=== PATIENT | male | born 1945 | race Caucasian/White ===

== ENCOUNTER 2017-07-01 15:23 | Emergency (ER) | payer OTHER ==
[2017-07-01] MEDS ORDERED: NS 1000 ML 1,000 ML ONE (15:34)
[2017-07-01 15:41] VITALS: BMI 35.2
[2017-07-01] MEDS ORDERED: NS 1000 ML 1,000 ML IV ONE (15:46)
[2017-07-01 16:00] LABS: ABG ALLEN TEST POS; ABG HCO3 23.8 mmol/L (22-26)
[2017-07-01 16:12] LABS: BASOPHILS % (AUTO) 0.2 % (0.2-1.0); EOSINOPHILS % (AUTO) 0.1 % (0.9-2.9); HEMATOCRIT 44.5 % (42.0-54.0); HEMOGLOBIN 14.7 g/dL (13.5-18.0); LYMPHOCYTES # (AUTO) 0.7 X10^3/uL (1.3-2.9); LYMPHOCYTES % (AUTO) 5.3 % (21.0-51.0); MEAN CORPUSCULAR HEMOGLOBIN 27.2 pg (27.0-34.0); MEAN CORPUSCULAR VOLUME 82.4 fL (80.0-100.0); MEAN PLATELET VOLUME 8.7 fL (7.4-11.0); MONOCYTES # (AUTO) 1.6 x10^3/uL (0.3-0.8); MONOCYTES % (AUTO) 11.7 % (0.0-13.0); NEUTROPHILS % (AUTO) 82.7 % (42.0-75.0); PLATELET COUNT 244 X10^3/uL (150.0-450.0); RED CELL DISTRIBUTION WIDTH 15.7 % (11.6-16.5); WHITE BLOOD COUNT 13.3 X10^3/uL (3.6-10.0)
--- NOTE | 2017-07-01 16:32 | RAD ---
HISTORY: Shortness of breath, flu-like symptoms Study: Single view chest Comparison: None Findings: Single portable view is submitted. No infiltrate, effusion or pneumothorax identified. The cardiac an d mediastinal contours are within normal limits. The soft tissues are unremarkable. IMPRESSION: 1. No acute cardiopulmonary abnormality. Reported By:
--- NOTE | 2017-07-01 16:34 | DR.GENAD ---
HPI - PCP Primary Care Physician: REGGIE - Complaint/Symptoms Chief Complaint Doctors Comments: History as stated. Chief Complaint:: PT C/O FLU LIKE SYMPTOMS. PT'S FAMILY STATES HE HAS BEEN RUNNING FEVER AND HAS BEEN COUGHING. BODY ACHES. PT'S FAMILY STATES PT HAS BEEN SICK WITH THIS FOR 1 WEEK. NOTED PT TO HAVE LABORED BREATHING. - Source History Provided: Patient - Mode of Arrival Mode of Arrival: Wheelchair - Timing Onset of Chief Complaint: 06/24/17 PMH - PMH Past Medical History: Yes Past Medical History: COPD, Coronary Artery Disease, Diabetes, Dyslipidemia, Hypertension, Sleep Apnea Past Surgical History: Yes Surgical History: Unknown - Family History History of Family Medical Conditions: No - Social History Does any household member use tobacco: No Alcohol Use: None Do you use any recreational Drugs:: No Lives With: Alone Lives Where: Home - infectious screening In the last 2 months have you had wt loss of >10#?: NO Have you had fever, night sweats or hemotysis?: No Have you traveled outside the country in the last 6 months?: No Isolation: Standard ROS - Review of Systems Constitutional: See HPI Eyes: No Symptoms Reported ENTM: No Symptoms Reported Respiratoy: No Symptoms Reported Cardiovascular: No Symptoms Reported Gastrointestinal/Abdominal: No Symptoms Reported Genitourinary: No Symptoms Reported Neurological: No Symptoms Reported Musculoskeletal: No Symptoms Reported Integumentary: No Symptoms Reported Hematologic/Lymphatic: No Symptoms Reported Endocrine: No Symptoms Reported Psychiatric: No Symptoms Reported All Other Systems: Reviewed and Negative PE - Vital Signs Vitals: Temperature 100.9 F Pulse Rate [Apical] 104 Pulse Rate 101 Respiratory Rate 31 Blood Pressure [Right Arm] 158/84 Blood Pressure 140/82 O2 Sat by Pulse Oximetry 94 - General Limitations: No Limitations General Appearance: Alert, In No Apparent Distress - Head Head Exam: Normal Inspection, Atraumatic - Eyes Eye exam: Normal Appearance, PERRL, EOMI - ENT ENT Exam: Normal Exam External Ear Exam: Normal External Inspection TM/Canal Exam: Bilateral Normal Nose Exam: Normal Nose Exam Mouth Exam: Normal Inspection Throat Exam: Normal Inspection - Neck Neck Exam: Normal Inspection, Full ROM - Chest Chest Inspection: Normal Inspection - Respiratory Respiratory Exam: Normal Lung Sounds Bilat Respiratory Exam: Bilateral Clear to Auscultation - Cardiovascular Cardiovascular Exam: Regular Rate, Normal Rhythm - Abdominal Exam Abdominal Exam: Normal Inspection, Normal Bowel Sounds Abdominal Tenderness: negative: RUQ, RLQ, LUQ, LLQ, Epigastrium, Suprapubic, Diffuse, Mild, Moderate, Severe, Other - Extremities Extremities Exam: Normal Inspection, Full ROM - Back Back Exam: Normal Inspection, Full ROM - Neurologic Neurological Exam: Alert, Oriented X3, CN II-XII Intact - Psychiatric Psychiatric Exam: Normal Affect - Skin Skin Exam: Warm, Dry, Intact ROR - Labs Reviewed Laboratory Results Reviewed?: Yes (influenza B) Result Diagrams: 07/01/17 15:50 07/01/17 15:50 Laboratory: WBC 13.3 X10^3/uL (3.6-10.0) H 07/01/17 15:50 RBC 5.40 X10^6/uL (4.7-6.0) 07/01/17 15:50 Hgb 14.7 g/dL (13.5-18.0) 07/01/17 15:50 Hct 44.5 % (42.0-54.0) 07/01/17 15:50 MCV 82.4 fL (80.0-100.0) 07/01/17 15:50 MCH 27.2 pg (27.0-34.0) 07/01/17 15:50 MCHC 33.0 g/dL (33.0-35.0) 07/01/17 15:50 RDW 15.7 % (11.6-16.5) 07/01/17 15:50 Plt Count 244 X10^3/uL (150.0-450.0) 07/01/17 15:50 MPV 8.7 fL (7.4-11.0) 07/01/17 15:50 Neut % 82.7 % (42.0-75.0) H 07/01/17 15:50 Lymph % 5.3 % (21.0-51.0) L 07/01/17 15:50 [place] % 11.7 % (0.0-13.0) 07/01/17 15:50 Eos % 0.1 % (0.9-2.9) L 07/01/17 15:50 Baso % 0.2 % (0.2-1.0) 07/01/17 15:50 Neut # 11.0 x10^3/uL (2.2-4.8) H 07/01/17 15:50 Lymph # 0.7 X10^3/uL (1.3-2.9) L 07/01/17 15:50 [place] # 1.6 x10^3/uL (0.3-0.8) H 07/01/17 15:50 Eos # 0.0 x10^3/uL (0.0-0.2) 07/01/17 15:50 Baso # 0.0 X10^3/uL (0.0-0.1) 07/01/17 15:50 Absolute Nucleated RBC 0.0 /100WBC 07/01/17 15:50 Sample Site Rrad 07/01/17 15:39 ABG pH 7.440 (7.35-7.45) 07/01/17 15:39 ABG pCO2 35.0 mmHg (35.0-45.0) 07/01/17 15:39 ABG pO2 74.0 mmHg (80.0-100.0) L 07/01/17 15:39 ABG HCO3 23.8 mmol/L (22-26) 07/01/17 15:39 ABG O2 Saturation 95.0 % (90-100) 07/01/17 15:39 ABG Base Excess 0.0 mmol/L (-2.0-2.0) 07/01/17 15:39 Stan Test Pos 07/01/17 15:39 A-a Gradient 82.0 mmHg 07/01/17 15:39 FiO2 28.000 07/01/17 15:39 Blood Gas Comments Asha well hm 07/01/17 15:39 Sodium 133 mmol/L (136-145) L 07/01/17 15:50 Corrected Sodium 137 mmol/L (136-145) 07/01/17 15:50 Potassium 4.0 mmol/L (3.5-5.1) 07/01/17 15:50 Chloride 97 mmol/L (98-107) L 07/01/17 15:50 Carbon Dioxide 22.6 mmol/L (21-32) 07/01/17 15:50 BUN 21 mg/dL (7-18) H 07/01/17 15:50 Creatinine 1.41 mg/dL (0.70-1.30) H 07/01/17 15:50 Est GFR (MDRD) Af Amer > 60 (>60) 07/01/17 15:50 Est GFR (MDRD) Non-Af 53 (>60) L 07/01/17 15:50 Glucose 247 mg/dL (65-99) H 07/01/17 15:50 Lactic Acid 2.1 mmol/L (0.4-2.0) H 07/01/17 16:00 Calcium 8.7 mg/dL (8.5-10.1) 07/01/17 15:50 Corrected Calcium 9.4 mg/dL (8.5-10.1) 07/01/17 15:50 Total Bilirubin 0.60 mg/dL (0.2-1.0) 07/01/17 15:50 AST 22 Units/L (15-37) 07/01/17 15:50 ALT 19 Units/L (12-78) 07/01/17 15:50 Alkaline Phosphatase 86 Units/L (46-116) 07/01/17 15:50 Creatine Kinase 280 Units/L (39-308) 07/01/17 15:50 CK-MB (CK-2) 1.0 ng/mL (0-4.0) 07/01/17 15:50 CK/CKMB % Calc 0.4 % (<4) 07/01/17 15:50 Troponin I 0.04 ng/mL (0-1.5) 07/01/17 15:50 Total Protein 7.7 g/dL (6.4-8.2) 07/01/17 15:50 Albumin 3.1 g/dL (3.4-5.0) L 07/01/17 15:50 Globulin 4.6 g/dL (2.5-4.5) H 07/01/17 15:50 Albumin/Globulin Ratio 0.7 Ratio (1.1-2.1) L 07/01/17 15:50 Influenza Type A (PCR) Negative (NEGATIVE) 07/01/17 18:06 Influenza Type B (PCR) Positive (NEGATIVE) A 07/01/17 18:06 - XRAY XRAY Interpreted by: Radiologist (chest: no acute cardiopulmonary disease) - Diagnosis Discharge Problem: Influenza - Discharge Plan Condition: Stable - Follow ups/Referrals Follow ups/Referrals: NFD,None [Primary Care Provider] - 3 days - Instructions
[2017-07-01] MEDS ORDERED: DUONEB 0.5 MG/3 MG ONE (16:36)
[2017-07-01 16:37] LABS: BLOOD UREA NITROGEN 21 mg/dL (7-18); CALCIUM 8.7 mg/dL (8.5-10.1); CARBON DIOXIDE 22.6 mmol/L (21-32); CHLORIDE 97 mmol/L (98-107); COR NA(FOR HYPERGLY) 137 mmol/L (136-145); CREATININE 1.41 mg/dL (0.70-1.30); SODIUM 133 mmol/L (136-145); TROPONIN I 0.04 ng/mL (0-1.5); eGFR BLACK RACES > 60 (>60); eGFR NON BLACK RACES 53 (>60)
[2017-07-01 16:40] LABS: ALANINE AMINOTRANSFERASE 19 Units/L (12-78); ALBUMIN 3.1 g/dL (3.4-5.0); ALKALINE PHOSPHATASE 86 Units/L (46-116); ASPARTATE AMINO TRANSFERASE 22 Units/L (15-37); CKMB % 0.4 % (<4); COR CA(FOR HYPOALB) 9.4 mg/dL (8.5-10.1); CREATINE KINASE 280 Units/L (39-308); TOTAL PROTEIN 7.7 g/dL (6.4-8.2)
[2017-07-01] MEDS ORDERED: SOLU-Medrol 125 MG VIAL IVP SCH (17:00)
[2017-07-01] MEDS ORDERED: SOLU-Medrol 125 MG VIAL ONE (17:08)
[2017-07-01] MEDS ORDERED: DUONEB 0.5 MG/3 MG NEB ONE (17:16)
[2017-07-01 19:01] VITALS: BP 167/67
== END 2017-07-01 19:08 | disposition home or self-care (01) ==
LOC: ER 15:34
DX: J10.1 Influenza due to other identified influenza virus with other respiratory manifestations (principal)
CPT/HCPCS: 36415; 36600; 71045; 80053; 82550; 82553; 82803; 83605; 84484; 85025; 87040; 87502; 93005; 93010; 94640; 96365; 96367; 96374; 99282; 99283; A4222; J2930; J7620

== ENCOUNTER → 2017-07-04 | Outpatient (CLI) | payer OTHER ==
[2017-07-01 19:01] VITALS: BP 167/67
[2017-07-04 14:26] LABS: BASOPHILS % (AUTO) 0.2 % (0.2-1.0); HEMATOCRIT 39.4 % (42.0-54.0); HEMOGLOBIN 13.3 g/dL (13.5-18.0); LYMPHOCYTES # (AUTO) 1.2 X10^3/uL (1.3-2.9); LYMPHOCYTES % (AUTO) 6.1 % (21.0-51.0); MEAN CORPUSCULAR HEMOGLOBIN 27.5 pg (27.0-34.0); MEAN CORPUSCULAR HGB CONC 33.7 g/dL (33.0-35.0); MEAN CORPUSCULAR VOLUME 81.8 fL (80.0-100.0); MEAN PLATELET VOLUME 8.2 fL (7.4-11.0); MONOCYTES # (AUTO) 1.6 x10^3/uL (0.3-0.8); MONOCYTES % (AUTO) 8.2 % (0.0-13.0); NEUTROPHILS # (AUTO) 16.5 x10^3/uL (2.2-4.8); NEUTROPHILS % (AUTO) 85.5 % (42.0-75.0); PLATELET COUNT 322 X10^3/uL (150.0-450.0); RED BLOOD COUNT 4.82 X10^6/uL (4.7-6.0); RED CELL DISTRIBUTION WIDTH 15.7 % (11.6-16.5); RETICULOCYTE % 0.78 % (0.8-2.2); WHITE BLOOD COUNT 19.3 X10^3/uL (3.6-10.0)
[2017-07-04 14:34] LABS: HEMOGLOBIN A1C 8.3 %
[2017-07-04 14:35] LABS: C-REACTIVE PROTEIN 223.5 mg/L (0-3.0); CALCIUM 8.7 mg/dL (8.5-10.1); CARBON DIOXIDE 25.9 mmol/L (21-32); CREATININE 1.61 mg/dL (0.70-1.30)
[2017-07-04 15:07] LABS: TOTAL PSA 15.63 ng/mL (0.13-4.0)
--- NOTE | 2017-07-04 15:17 | RAD ---
HISTORY: Shortness of breath, cough, cold, congestion Study: Two views chest Comparison: July 01, 2017 Findings: The patient is rotated. The cardiac silhouette is enlarged. An approximate 1.0 x 1.7 cm nodular opaci ty is seen projecting over the right lower lobe and was not definitely appreciated on prior exam perf ormed on July 01, 2017. This finding may reflect summation of overlying shadows or perhaps a nipp le shadow but remains indeterminate. Recommend short interval follow-up chest radiographs for further evaluation and if indicated subsequent follow-up CT of the chest. IMPRESSION: Cardiomegaly. Indeterminate nodular opacity projecting over the right lower lobe as noted above. Reported By:
[2017-07-04 15:35] LABS: ERYTHROCYTE SEDIMENTATION RATE 54 MM/HOUR (0-15)
== END | disposition home or self-care (01) | DRG 639 ==
LOC: LAB 13:50
PROVIDERS: ATTEND Psychiatry & Neurology Neurology
DX: E11.8 Type 2 diabetes mellitus with unspecified complications (principal); Z13.21 Encounter for screening for nutritional disorder; R97.20 Elevated prostate specific antigen [PSA]; I10 Essential (primary) hypertension; J10.1 Influenza due to other identified influenza virus with other respiratory manifestations; R06.02 Shortness of breath; I51.7 Cardiomegaly
CPT/HCPCS: 36415; 71046; 80048; 82306; 82607; 82615; 82746; 83036; 83880; 83918; 84153; 85025; 85045; 85652; 86140; 86256; 86340

== ENCOUNTER 2017-07-05 12:49 | Inpatient (IN) | payer OTHER ==
[2017-07-05] MEDS ORDERED: TUSSIONEX PENNKINETIC SUSP PO PRN (14:11)
[2017-07-05 14:50] LABS: BASOPHILS % (AUTO) 0.3 % (0.2-1.0); EOSINOPHILS % (AUTO) 0.2 % (0.9-2.9); HEMOGLOBIN 12.8 g/dL (13.5-18.0); LYMPHOCYTES # (AUTO) 1.1 X10^3/uL (1.3-2.9); LYMPHOCYTES % (AUTO) 6.9 % (21.0-51.0); MEAN CORPUSCULAR HEMOGLOBIN 27.4 pg (27.0-34.0); MEAN CORPUSCULAR HGB CONC 33.6 g/dL (33.0-35.0); MEAN CORPUSCULAR VOLUME 81.7 fL (80.0-100.0); MEAN PLATELET VOLUME 8.4 fL (7.4-11.0); MONOCYTES # (AUTO) 1.6 x10^3/uL (0.3-0.8); NEUTROPHILS # (AUTO) 13.5 x10^3/uL (2.2-4.8); NEUTROPHILS % (AUTO) 82.6 % (42.0-75.0); PLATELET COUNT 365 X10^3/uL (150.0-450.0); RED BLOOD COUNT 4.65 X10^6/uL (4.7-6.0); WHITE BLOOD COUNT 16.4 X10^3/uL (3.6-10.0)
[2017-07-05 14:55] VITALS: BMI 31.6
[2017-07-05] MEDS ORDERED: SALINE 3% 15 ML NEB TX NEB ONE (15:05)
[2017-07-05 15:06] LABS: ALANINE AMINOTRANSFERASE 27 Units/L (12-78); ALKALINE PHOSPHATASE 100 Units/L (46-116); ASPARTATE AMINO TRANSFERASE 22 Units/L (15-37); BLOOD UREA NITROGEN 19 mg/dL (7-18); CALCIUM 8.7 mg/dL (8.5-10.1); CARBON DIOXIDE 25.7 mmol/L (21-32); CHLORIDE 96 mmol/L (98-107); COR CA(FOR HYPOALB) 10.3 mg/dL (8.5-10.1); COR NA(FOR HYPERGLY) 136 mmol/L (136-145); CREATININE 1.33 mg/dL (0.70-1.30); SODIUM 132 mmol/L (136-145); eGFR BLACK RACES > 60 (>60); eGFR NON BLACK RACES 56 (>60)
[2017-07-05] MEDS ORDERED: NS 1/2 1000 ML IV 1,000 ML IV ONE (15:17)
[2017-07-05] MEDS: LEVAQUIN PREMIX IV 750 MG 750 MG/150 ML BAG IV SCH (15:29)
[2017-07-05] MEDS: FORTAZ or TAZICEF INJ 1 GM in NS 100 ML IV + SPIKE MINIBAG* 100 ML IV SCH ×2 (15:29→21:00)
[2017-07-05] MEDS: NS 1/2 1000 ML IV 1,000 ML IV SCH (15:29)
[2017-07-05] MEDS: ROBITUSSIN DM PO SCH ×2 (16:14→20:58)
--- NOTE | 2017-07-05 16:15 | RAD ---
Examination: Portable AP chest History: SOB Comparison 07/04/2017 Findings: Continued upper normal heart size with dilated aorta consistent with hypertension/arteriosc lerosis. The interstitial pattern in the right base is prominent but a discrete mass, nodule or conso lidation is not identified on this mobile examination. Impression: Nonspecific interstitial findings right base without definite nodule or mass. See above. Continued standard PA and lateral views recommended to better evaluate and exclude lesion suggested o n 07/04/2017. Reported By:
[2017-07-05] MEDS: HumuLIN R SC PRN ×2 (16:32→20:57)
[2017-07-05] MEDS: DUONEB 0.5 MG/3 MG NEB SCH ×2 (16:37→21:09)
[2017-07-05] MEDS: TYLENOL 325 MG TAB PO PRN (19:35)
[2017-07-05] MEDS: PULMICORT NEB TX 0.5 MG NEB SCH (21:09)
[2017-07-06] MEDS: DUONEB 0.5 MG/3 MG NEB SCH ×6 (01:13→20:42)
[2017-07-06] MEDS ORDERED: NS 1/2 1000 ML IV 1,000 ML IV ONE ×2 (03:15→20:51)
[2017-07-06] MEDS: FORTAZ or TAZICEF INJ 1 GM in NS 100 ML IV + SPIKE MINIBAG* 100 ML IV SCH ×3 (05:05→21:08)
[2017-07-06] MEDS: NS 1/2 1000 ML IV 1,000 ML IV SCH ×3 (05:05→21:08)
[2017-07-06 05:50] LABS: BASOPHILS % (AUTO) 0.3 % (0.2-1.0); EOSINOPHILS # (AUTO) 0.1 x10^3/uL (0.0-0.2); EOSINOPHILS % (AUTO) 0.6 % (0.9-2.9); HEMATOCRIT 38.9 % (42.0-54.0); LYMPHOCYTES # (AUTO) 1.2 X10^3/uL (1.3-2.9); LYMPHOCYTES % (AUTO) 8.6 % (21.0-51.0); MEAN CORPUSCULAR HEMOGLOBIN 27.2 pg (27.0-34.0); MEAN CORPUSCULAR HGB CONC 33.4 g/dL (33.0-35.0); MEAN CORPUSCULAR VOLUME 81.6 fL (80.0-100.0); MEAN PLATELET VOLUME 8.4 fL (7.4-11.0); MONOCYTES # (AUTO) 1.9 x10^3/uL (0.3-0.8); MONOCYTES % (AUTO) 13.8 % (0.0-13.0); NEUTROPHILS # (AUTO) 10.7 x10^3/uL (2.2-4.8); NEUTROPHILS % (AUTO) 76.7 % (42.0-75.0); PLATELET COUNT 369 X10^3/uL (150.0-450.0); RED BLOOD COUNT 4.77 X10^6/uL (4.7-6.0); RED CELL DISTRIBUTION WIDTH 15.8 % (11.6-16.5); WHITE BLOOD COUNT 13.9 X10^3/uL (3.6-10.0)
[2017-07-06 06:13] LABS: ALANINE AMINOTRANSFERASE 34 Units/L (12-78); ALBUMIN 1.8 g/dL (3.4-5.0); ALKALINE PHOSPHATASE 91 Units/L (46-116); ASPARTATE AMINO TRANSFERASE 27 Units/L (15-37); BLOOD UREA NITROGEN 15 mg/dL (7-18); CALCIUM 8.4 mg/dL (8.5-10.1); CARBON DIOXIDE 24.1 mmol/L (21-32); CHLORIDE 98 mmol/L (98-107); COR CA(FOR HYPOALB) 10.2 mg/dL (8.5-10.1); COR NA(FOR HYPERGLY) 136 mmol/L (136-145); CREATININE 0.97 mg/dL (0.70-1.30); SODIUM 134 mmol/L (136-145); TOTAL PROTEIN 6.7 g/dL (6.4-8.2); eGFR BLACK RACES > 60 (>60); eGFR NON BLACK RACES > 60 (>60)
--- NOTE | 2017-07-06 06:26 | RAD ---
HISTORY: 72-year-old male with shortness of breath and history of COPD and asthma. Study: Frontal view of the chest. Comparison: Chest radiograph 07/05/2017 and 07/04/2017 Findings: The trachea is midline. The cardiac silhouette is stably enlarged with low lung volumes with broncho vascular crowding at the bases. Redemonstration of right basilar nodular opacity without focal conso lidation, effusion or pneumothorax. Soft tissues are unremarkable. Osseous structures are unremarkab le. IMPRESSION: 1. Right basilar nodular opacity, recommend CT thorax for complete evaluation. Reported By:
[2017-07-06] MEDS ORDERED: POTASSIUM CHL 60 MEQ/NS 0.45% 500 ML IV PRN (07:21)
[2017-07-06] MEDS ORDERED: POTASSIUM CHL 40 MEQ/NS 0.45% 500 ML IV PRN (07:21)
[2017-07-06] MEDS ORDERED: K-RIDER 10 MEQ/NS 100 ML 10 MEQ/100 ML BAG IV PRN (07:21)
[2017-07-06] MEDS ORDERED: POTASSIUM CHLORIDE LIQ 20 MEQ UDC PO PRN (07:21)
[2017-07-06] MEDS: LEVAQUIN PREMIX IV 750 MG 750 MG/150 ML BAG IV SCH (08:11)
[2017-07-06] MEDS: PULMICORT NEB TX 0.5 MG NEB SCH ×2 (08:41→20:42)
[2017-07-06] MEDS: MAGNESIUM SULFATE 1 GM/100 mL PREMIX 1 GM/100 ML BAG IV PRN ×4 (10:00→15:00)
[2017-07-06] MEDS: ROBITUSSIN DM PO SCH ×4 (11:08→21:11)
[2017-07-06] MEDS: HumuLIN R SC PRN ×3 (11:19→21:11)
[2017-07-06] MEDS ORDERED: NS 100 ML IV 100 ML IV ONE (13:18)
[2017-07-06] MEDS: K-LYTE EFFERVESCENT PO PRN (14:05)
--- NOTE | 2017-07-06 15:37 | CT ---
HISTORY: Altered mental status. Study: CT brain with contrast Comparison: None. Technique: Multiple axial images of the brain were obtained from the skull base to the vertex with administratio n of IV contrast. Dose reduction techniques including Automated Exposure Control (AEC) and adjustmen t of mA and kV were utilized. Findings: Age-related cortical atrophy and chronic small vessel ischemic changes. No acute intraparenchymal hem orrhage or mass can be identified. No extra-axial fluid collections are seen. No alteration in the attenuation of the brain parenchyma can be identified to suggest acute or subacute ischemic change. The ventricular system is symmetric and nondilated. The extracranial structures are grossly unremark able. No areas of abnormal contrast enhancement. Atherosclerotic vascular calcifications of the visualized internal carotid and left vertebral arteries. The arteries otherwise appear normal. IMPRESSION: No acute intracranial pathology. Reported By:
--- NOTE | 2017-07-06 15:51 | CT ---
HISTORY: Shortness of breath. Study: CT chest with contrast Comparison: Chest x-ray dated same day. Technique: Multiple axial images of the chest were obtained from the thoracic inlet to the upper abdo men after the administration of IV contrast. MIP images were obtained. Dose reduction techniques incl uding Automated Exposure Control (AEC) and adjustment of mA and kV were utilized. Findings: The mediastinum does not demonstrate significant pathological lymphadenopathy. There is no paracardi al effusion observed. The thoracic aorta is normal in its contour without evidence for aneurysmal di latation. The central pulmonary arterial system does not demonstrate central filling defects to sugg est pulmonary emboli. Severe coronary artery calcifications. Mild/moderate calcifications of the thor acic aorta with associated mural thrombus. Mild cardiomegaly. Multifocal opacities are seen within the right upper lobe and right lower lobe. Small right pleural e ffusion. Other nodular densities along the right upper lobe and right lower lobe in a bronchovascular distribution. These likely represent infectious pulmonary nodules. A large pneumatocele also seen wi thin the right upper lobe. The left lung is clear. No pneumothorax. No obvious mass. 1.2 cm nonspecif ic jacobo hepatis lymph node (series 4, image 52). Question of layering sludge within the gallbladder neck. The gallbladder is otherwise unremarkable. Remaining upper abdominal structures appear normal. 2.5 x 2.6 subcutaneous posterior right upper back nodule (series 4 image 35 and series 7, image 56). This likely represents a sebaceous cyst. Degenerative changes of the spine. No obvious aggressive oss eous lesions. IMPRESSION: 1. No CT evidence of pulmonary embolus. 2. Multifocal pneumonia within the right lung as above. Recommend follow-up CT of the chest in 2-3 mo nths to document stability/resolution. 3. Other chronic findings as above. Reported By:
[2017-07-06 18:02] LABS: BILIRUBIN,URINE NEGATIVE (NEGATIVE); BLOOD/HEMOGLOBIN,URINE 1+ (NEGATIVE); GLUCOSE, URINE 1+ (NEGATIVE); KETONES,URINE NEGATIVE (NEGATIVE); LEUKOCYTE ESTERASE ,URINE NEGATIVE (NEGATIVE); NITRITES,URINE NEGATIVE (NEGATIVE); PROTEIN,URINE 2+ (NEGATIVE); UROBILINOGEN,URINE 1+ (NORMAL)
[2017-07-06 18:13] LABS: APPEARANCE,URINE CLEAR (CLEAR); BACTERIA,URINE TRACE /HPF (NEGATIVE); COLOR,URINE YELLOW (YELLOW); RBC,URINE 0-2 /HPF (NONE SEEN); SQUAMOUS EPITHELIAL CELL,UR RARE /HPF (NEGATIVE)
[2017-07-06 18:14] LABS: AMORPHOUS SEDIMENT,UR TRACE /HPF (NEGATIVE); HYALINE CASTS, URINE RARE /LPF (NEGATIVE)
--- NOTE | 2017-07-06 20:53 | DR.UPDATE ---
H&P Update History and Physical Update: WAS SEEN ON 07/05/2017. A H&P WAS COMPLETED PRIOR TO ADMISSION. PATIENT HAS BEEN SEEN AND EXAMINED WITH NO CHANGES NOTED TO H&P. Changes noted: NO Yes with the following:
[2017-07-07] MEDS: DUONEB 0.5 MG/3 MG NEB SCH ×6 (01:21→20:19)
[2017-07-07] MEDS: FORTAZ or TAZICEF INJ 1 GM in NS 100 ML IV + SPIKE MINIBAG* 100 ML IV SCH ×3 (05:30→22:03)
[2017-07-07 05:34] LABS: BASOPHILS % (AUTO) 0.3 % (0.2-1.0); EOSINOPHILS # (AUTO) 0.1 x10^3/uL (0.0-0.2); EOSINOPHILS % (AUTO) 0.9 % (0.9-2.9); HEMATOCRIT 36.8 % (42.0-54.0); HEMOGLOBIN 12.2 g/dL (13.5-18.0); LYMPHOCYTES # (AUTO) 1.2 X10^3/uL (1.3-2.9); MEAN CORPUSCULAR HEMOGLOBIN 27.2 pg (27.0-34.0); MEAN CORPUSCULAR HGB CONC 33.2 g/dL (33.0-35.0); MEAN CORPUSCULAR VOLUME 81.9 fL (80.0-100.0); MEAN PLATELET VOLUME 8.2 fL (7.4-11.0); MONOCYTES # (AUTO) 1.9 x10^3/uL (0.3-0.8); MONOCYTES % (AUTO) 12.6 % (0.0-13.0); NEUTROPHILS % (AUTO) 78.2 % (42.0-75.0); PLATELET COUNT 389 X10^3/uL (150.0-450.0); RED BLOOD COUNT 4.49 X10^6/uL (4.7-6.0); RED CELL DISTRIBUTION WIDTH 15.4 % (11.6-16.5); WHITE BLOOD COUNT 15.3 X10^3/uL (3.6-10.0)
[2017-07-07 05:54] LABS: ALANINE AMINOTRANSFERASE 51 Units/L (12-78); ALBUMIN 1.8 g/dL (3.4-5.0); ALKALINE PHOSPHATASE 91 Units/L (46-116); ASPARTATE AMINO TRANSFERASE 37 Units/L (15-37); BLOOD UREA NITROGEN 11 mg/dL (7-18); CALCIUM 8.4 mg/dL (8.5-10.1); CARBON DIOXIDE 26.7 mmol/L (21-32); CHLORIDE 100 mmol/L (98-107); COR CA(FOR HYPOALB) 10.2 mg/dL (8.5-10.1); COR NA(FOR HYPERGLY) 136 mmol/L (136-145); CREATININE 1.01 mg/dL (0.70-1.30); MAGNESIUM 1.5 mg/dL (1.7-2.9); SODIUM 135 mmol/L (136-145); TOTAL PROTEIN 6.6 g/dL (6.4-8.2); eGFR BLACK RACES > 60 (>60); eGFR NON BLACK RACES > 60 (>60)
--- NOTE | 2017-07-07 06:27 | RAD ---
HISTORY: 72-year-old male with shortness of breath and cough with congestion. History of COPD and as thma. Study: Frontal view of the chest. Comparison: Chest radiograph 07/06/2017, CT chest 07/06/2017. Findings: The trachea is midline. The cardiac silhouette is stably enlarged. Right lower lobe pneumonia consi stent with recent CT performed 07/06/2017. No large effusion or pneumothorax. Soft tissues are unrema rkable. Osseous structures are unremarkable. IMPRESSION: 1. Unchanged right lower lobe pneumonia. Reported By:
[2017-07-07] MEDS: PULMICORT NEB TX 0.5 MG NEB SCH ×2 (08:39→20:19)
[2017-07-07] MEDS: ALBUMIN HUMAN 25%- 100ML 100 ML IV SCH ×2 (09:02→11:47)
[2017-07-07] MEDS: ROBITUSSIN DM PO SCH ×4 (09:04→20:49)
[2017-07-07] MEDS: LEVAQUIN PREMIX IV 750 MG 750 MG/150 ML BAG IV SCH (09:04)
--- NOTE | 2017-07-07 09:55 | PCM.PROG ---
Progress Note - Progress Note for Day of Date: 07/06/17 - Subjective Subjective: IS BEING TREATED FOR PNEUMONIA. TODAY, HE IS ALERT AND ORIENTED, LYING IN BED ON MORNING ROUNDS. HE CONTINUES WITH COMPLAINTS OF SHORTNESS OF BREATH, A NON-PRODUCTIVE COUGH, AND WEAKNESS. FAMILY REPORTS THAT HE HAS HAD INTERMITTENT CONFUSION THROUGHOUT THE NIGHT AND YESTERDAY. ON EXAMINATION, HEART IS REGULAR IN RATE AND RHYTHM. BILATERAL LUNGS ARE NOTED WITH SCATTERED WHEEZING AND RHONCHI TO AUSCULTATION. HE IS CURRENTLY UTILIZING OXYGEN VIA NASAL CANNULA AT 2L/MIN. ABDOMEN IS ROUND, SOFT, AND NON-TENDER WITH NORMAL BOWEL SOUNDS NOTED IN ALL QUADRANTS. THERE IS NORMAL RANGE OF MOTION NOTED TO ALL EXTREMITIES. HIS VITALS THIS MORNING ARE 97.8-97-28-92% RA-144/83. LABS WERE OBTAINED. ABNORMAL LAB VALUES INCLUDE THE FOLLOWING: WBC 13.9, HGB 13.0, HCT 38.9, SODIUM 134, POTASSIUM 3.4, GLUCOSE 175, CALCIUM 8.4, MAGNESIUM 1.4, ALBUMIN 1.8. A CHEST XRAY WAS OBTAINED THIS MORNING AND REPORTED RIGHT BASILAR NODULAR OPACITY, RECOMMENDED CT THORAX FOR COMPLETE EVALUATION. CHEST CT OBTAINED AND REPORTED NO CT EVIDENCE OF PE. MULTIFOCAL PNEUMONIA WITHIN THE RIGHT LUNG. WE OBTAINED A BRAIN CT DUE TO COMPLAINTS OF INTERMITTENT CONFUSION. BRAIN CT NEGATIVE FOR ACUTE INTRACRANIAL PATHOLOGY. TODAY, WE WILL CONTINUE WITH CURRENT PLAN OF CARE WITH IV ANTIBIOTICS AND RESPIRATORY TREATMENTS. WE PLAN TO FOLLOW UP WITH AM LABS AND CHEST XRAY AND CONTINUE TO MONITOR PATIENT. - Past Medical Family Social History Past Med/Fam/Surg Hx: No changes since H&P Allergies: Allergies No Known Drug Allergies Allergy (Verified 07/01/17 15:24) - Review of Systems ROS: No change since H&P - Vital Signs and I&O's Vital Signs: Temperature 97.5 F Pulse Rate [Right Brachial] 109 Pulse Rate 102 Respiratory Rate 39 Blood Pressure [Right Arm] 150/90 Blood Pressure 167/67 O2 Sat by Pulse Oximetry 92 Intake and Output: Intake & Output 07/04/17 07/05/17 07/06/17 07/07/17 11:59 11:59 11:59 11:59 Intake Total 1317 1792 Output Total 200 Balance 1117 1792 - Physical Exam Oriented: Normal Eyes: Normal. negative: Blurred Vision, Diplopia, Discharge, Pain, Redness, Photophobia, Other Ear: Normal. negative: Right, Left, Swelling, Ecchymosis, Hemotypanum, Abrasion , Laceration Nose: Normal. negative: Injected, Discharge, Blood, Other Throat: Normal Respiratory: Generalized, Wheezes, Rhonchi Cardiovascular: Normal. negative: S3, S4, Murmur : Normal Auscultation: Bowel Sounds: Normal Palpation: Normal Tenderness: Normal Skin: Normal Musculoskeletal: Normal Psychiatric: Normal Mood Description: Calm Affect: Normal Speech Pattern: Clear, Appropriate - Laboratory and Diagnostics Result Diagrams: 07/07/17 04:35 07/07/17 04:35 Labs: 07/06/17 17:51 Urine,Clean Catch Urine Culture - Preliminary 07/05/17 14:28 Blood Blood Culture - Preliminary 07/05/17 14:36 Blood Blood Culture - Preliminary Laboratory WBC 15.3 X10^3/uL (3.6-10.0) H 07/07/17 04:35 RBC 4.49 X10^6/uL (4.7-6.0) L 07/07/17 04:35 Hgb 12.2 g/dL (13.5-18.0) L 07/07/17 04:35 Hct 36.8 % (42.0-54.0) L 07/07/17 04:35 MCV 81.9 fL (80.0-100.0) 07/07/17 04:35 MCH 27.2 pg (27.0-34.0) 07/07/17 04:35 MCHC 33.2 g/dL (33.0-35.0) 07/07/17 04:35 RDW 15.4 % (11.6-16.5) 07/07/17 04:35 Plt Count 389 X10^3/uL (150.0-450.0) 07/07/17 04:35 MPV 8.2 fL (7.4-11.0) 07/07/17 04:35 Neut % 78.2 % (42.0-75.0) H 07/07/17 04:35 Lymph % 8.0 % (21.0-51.0) L 07/07/17 04:35 [place] % 12.6 % (0.0-13.0) 07/07/17 04:35 Eos % 0.9 % (0.9-2.9) 07/07/17 04:35 Baso % 0.3 % (0.2-1.0) 07/07/17 04:35 Neut # 12.0 x10^3/uL (2.2-4.8) H 07/07/17 04:35 Lymph # 1.2 X10^3/uL (1.3-2.9) L 07/07/17 04:35 [place] # 1.9 x10^3/uL (0.3-0.8) H 07/07/17 04:35 Eos # 0.1 x10^3/uL (0.0-0.2) 07/07/17 04:35 Baso # 0.0 X10^3/uL (0.0-0.1) 07/07/17 04:35 Absolute Nucleated RBC 0.0 /100WBC 07/07/17 04:35 Sodium 135 mmol/L (136-145) L 07/07/17 04:35 Corrected Sodium 136 mmol/L (136-145) 07/07/17 04:35 Potassium 3.6 mmol/L (3.5-5.1) 07/07/17 04:35 Chloride 100 mmol/L (98-107) 07/07/17 04:35 Carbon Dioxide 26.7 mmol/L (21-32) 07/07/17 04:35 BUN 11 mg/dL (7-18) 07/07/17 04:35 Creatinine 1.01 mg/dL (0.70-1.30) 07/07/17 04:35 Est GFR (MDRD) Af Amer > 60 (>60) 07/07/17 04:35 Est GFR (MDRD) Non-Af > 60 (>60) 07/07/17 04:35 Glucose 161 mg/dL (65-99) H 07/07/17 04:35 POC Glucose (mg/dL) 159 mg/dL (65-99) H 07/07/17 05:31 Lactic Acid 2.0 mmol/L (0.4-2.0) 07/05/17 14:28 Calcium 8.4 mg/dL (8.5-10.1) L 07/07/17 04:35 Corrected Calcium 10.2 mg/dL (8.5-10.1) H 07/07/17 04:35 Magnesium 1.5 mg/dL (1.7-2.9) L 07/07/17 04:35 Total Bilirubin 0.60 mg/dL (0.2-1.0) 07/07/17 04:35 AST 37 Units/L (15-37) 07/07/17 04:35 ALT 51 Units/L (12-78) 07/07/17 04:35 Alkaline Phosphatase 91 Units/L (46-116) 07/07/17 04:35 Total Protein 6.6 g/dL (6.4-8.2) 07/07/17 04:35 Albumin 1.8 g/dL (3.4-5.0) L 07/07/17 04:35 Globulin 4.8 g/dL (2.5-4.5) H 07/07/17 04:35 Albumin/Globulin Ratio 0.4 Ratio (1.1-2.1) L 07/07/17 04:35 Specimen Type Clean catch urine 07/06/17 17:51 Urine Color Yellow (YELLOW) 07/06/17 17:51 Urine Appearance Clear (CLEAR) 07/06/17 17:51 Urine pH 6.0 (5.0 - 8.0) 07/06/17 17:51 Ur Specific [place] 1.015 (1.000-1.030) 07/06/17 17:51 Urine Protein 2+ (NEGATIVE) 07/06/17 17:51 Urine Glucose (UA) 1+ (NEGATIVE) 07/06/17 17:51 Urine Ketones Negative (NEGATIVE) 07/06/17 17:51 Urine Occult Blood 1+ (NEGATIVE) 07/06/17 17:51 Urine Nitrite Negative (NEGATIVE) 07/06/17 17:51 Urine Bilirubin Negative (NEGATIVE) 07/06/17 17:51 Urine Urobilinogen 1+ (NORMAL) 07/06/17 17:51 Ur Leukocyte Esterase Negative (NEGATIVE) 07/06/17 17:51 Urine RBC 0-2 /HPF (NONE SEEN) 07/06/17 17:51 Urine WBC 0-1 /HPF (NONE SEEN) 07/06/17 17:51 Ur Squamous Epith Cells Rare /HPF (NEGATIVE) 07/06/17 17:51 Amorphous Sediment Trace /HPF (NEGATIVE) 02/21/18 17:51 Urine Bacteria Trace /HPF (NEGATIVE) 07/06/17 17:51 Hyaline Casts Rare /LPF (NEGATIVE) 07/06/17 17:51 Ur Culture Indicated? Yes/culture set up 07/06/17 17:51 Urine Opiates Screen Negative (NEG=<300) 07/06/17 17:51 Urine Methadone Screen Negative (NEG=<300) 07/06/17 17:51 Ur Barbiturates Screen Negative (NEG=<200) 07/06/17 17:51 Ur Phencyclidine Scrn Negative (NEG=<25) 07/06/17 17:51 Ur Amphetamines Screen Negative (NEG=<1000) 07/06/17 17:51 U Benzodiazepines Scrn Negative (NEG=<200) 07/06/17 17:51 Urine Cocaine Screen Negative (NEG=<300) 07/06/17 17:51 U Marijuana (THC) Screen Negative (NEG=<50) 07/06/17 17:51 - Plan (1) Pneumonia Status: Acute Qualifiers: Pneumonia type: due to unspecified organism Laterality: right Lung location: unspecified part of lung Qualified Code(s): J18.9 - Pneumonia, unspecified organism Plan: PNEUMONIA PROTOCOL, CONTINUE TO MONITOR
[2017-07-07] MEDS ORDERED: PATIENT'S HOME MEDICATION (Albuterol Sulfate [Proventil Hfa Inhaler 6.7 Gm] 2 PUFF) INH PRN (10:14)
[2017-07-07] MEDS ORDERED: PATIENT'S HOME MEDICATION (Budesonide-Formoterol 1 PUFF) INH PRN (10:14)
[2017-07-07] MEDS ORDERED: PATIENT'S HOME MEDICATION (Tiotropium Bromide Monohydrate 1 CAP) INH SCH (10:15)
[2017-07-07] MEDS: NS 1/2 1000 ML IV 1,000 ML IV SCH (11:51)
[2017-07-07 11:58] LABS: ABG ALLEN TEST POS; ABG BASE EXCESS 4.6 mmol/L (-2.0-2.0); ABG HCO3 28.3 mmol/L (22-26)
[2017-07-07] MEDS: TAB-A-VITE PO SCH (13:07)
[2017-07-07] MEDS: ZESTRIL TAB 40 MG PO SCH (13:07)
[2017-07-07] MEDS: LOPRESSOR TAB 25 MG PO SCH ×2 (13:07→20:49)
[2017-07-07] MEDS: PROSCAR PO SCH (13:07)
[2017-07-07] MEDS: FOLIC ACID TAB 1 MG PO SCH (13:07)
[2017-07-07] MEDS: LIPITOR TAB 20 MG PO SCH (20:48)
[2017-07-07] MEDS: TYLENOL 325 MG TAB PO PRN (20:48)
[2017-07-08] MEDS: DUONEB 0.5 MG/3 MG NEB SCH ×5 (00:20→20:29)
[2017-07-08] MEDS: NS 1/2 1000 ML IV 1,000 ML IV SCH ×2 (01:55→13:46)
[2017-07-08] MEDS: FORTAZ or TAZICEF INJ 1 GM in NS 100 ML IV + SPIKE MINIBAG* 100 ML IV SCH ×3 (05:28→21:12)
[2017-07-08] MEDS ORDERED: NS 1/2 1000 ML IV 1,000 ML IV ONE (05:33)
[2017-07-08 06:14] LABS: BASOPHILS % (AUTO) 0.2 % (0.2-1.0); EOSINOPHILS # (AUTO) 0.3 x10^3/uL (0.0-0.2); EOSINOPHILS % (AUTO) 2.3 % (0.9-2.9); HEMATOCRIT 35.9 % (42.0-54.0); LYMPHOCYTES # (AUTO) 1.5 X10^3/uL (1.3-2.9); LYMPHOCYTES % (AUTO) 10.6 % (21.0-51.0); MEAN CORPUSCULAR HEMOGLOBIN 27.4 pg (27.0-34.0); MEAN CORPUSCULAR HGB CONC 33.5 g/dL (33.0-35.0); MEAN PLATELET VOLUME 8.1 fL (7.4-11.0); MONOCYTES # (AUTO) 1.9 x10^3/uL (0.3-0.8); MONOCYTES % (AUTO) 12.9 % (0.0-13.0); NEUTROPHILS # (AUTO) 10.8 x10^3/uL (2.2-4.8); PLATELET COUNT 401 X10^3/uL (150.0-450.0); RED BLOOD COUNT 4.38 X10^6/uL (4.7-6.0); RED CELL DISTRIBUTION WIDTH 15.6 % (11.6-16.5); WHITE BLOOD COUNT 14.6 X10^3/uL (3.6-10.0)
[2017-07-08 06:18] LABS: ALANINE AMINOTRANSFERASE 47 Units/L (12-78); ALBUMIN 1.9 g/dL (3.4-5.0); ALKALINE PHOSPHATASE 89 Units/L (46-116); ASPARTATE AMINO TRANSFERASE 28 Units/L (15-37); BLOOD UREA NITROGEN 8 mg/dL (7-18); CALCIUM 8.6 mg/dL (8.5-10.1); CARBON DIOXIDE 28.8 mmol/L (21-32); CHLORIDE 99 mmol/L (98-107); COR CA(FOR HYPOALB) 10.3 mg/dL (8.5-10.1); COR NA(FOR HYPERGLY) 137 mmol/L (136-145); CREATININE 0.97 mg/dL (0.70-1.30); MAGNESIUM 1.6 mg/dL (1.7-2.9); SODIUM 136 mmol/L (136-145); TOTAL PROTEIN 6.7 g/dL (6.4-8.2); eGFR BLACK RACES > 60 (>60); eGFR NON BLACK RACES > 60 (>60)
[2017-07-08 06:47] LABS: BAND NEUTROPHILS % 3 % (0-10)
[2017-07-08 06:48] LABS: PLATELET MORPHOLOGY COMMENT NORMAL (NORMAL)
--- NOTE | 2017-07-08 07:14 | RAD ---
HISTORY: Shortness of breath Study: Chest AP portable Comparison: 07/07/2017 Findings: The patient is rotated to the left. The heart is enlarged. No congestive heart failure is noted. Impr ovement is identified in the right basilar lung infiltrate being followed. The remainder of the lung cruz are clear. No definite pleural effusions are identified. The bony thorax is unremarkable. IMPRESSION: Improving right basilar lung infiltrate Cardiomegaly without congestive heart failure Reported By:
[2017-07-08] MEDS: PULMICORT NEB TX 0.5 MG NEB SCH ×2 (08:38→20:30)
--- NOTE | 2017-07-08 09:08 | PCM.PROG ---
Progress Note - Progress Note for Day of Date: 07/07/17 - Subjective Subjective: IS BEING TREATED FOR PNEUMONIA. TODAY, HE IS ALERT AND ORIENTED, SITTING UP IN BED EATING BREAKFAST. HE CONTINUES WITH COMPLAINTS OF SHORTNESS OF BREATH, A NON-PRODUCTIVE COUGH, AND WEAKNESS. FAMILY REPORTS THAT HE CONTINUES WITH INTERMITTENT CONFUSION AND WEAKNESS. ON EXAMINATION, HEART IS REGULAR IN RATE AND RHYTHM. BILATERAL LUNGS ARE NOTED WITH SCATTERED WHEEZING AND RHONCHI TO AUSCULTATION. HE IS CURRENTLY UTILIZING OXYGEN VIA NASAL CANNULA AT 2L/MIN. ABDOMEN IS ROUND, SOFT, AND NON-TENDER WITH NORMAL BOWEL SOUNDS NOTED IN ALL QUADRANTS. THERE IS NORMAL RANGE OF MOTION NOTED TO ALL EXTREMITIES. HIS VITALS THIS MORNING ARE 96.7-94-40-95%-175/86. LABS WERE OBTAINED. ABNORMAL LAB VALUES INCLUDE THE FOLLOWING: WBC 15.3, RBC 4.49, HGB 12.2, HCT 36.8, SODIUM 135, GLUCOSE 161, CALCIUM 8.4, MAGNESIUM 1.5, ALBUMIN 1.8. A CHEST XRAY WAS OBTAINED THIS MORNING AND REPORTED UNCHANGED RIGHT LOWER LOBE PNEUMONIA. TODAY, WE WILL CONTINUE WITH CURRENT PLAN OF CARE WITH IV ANTIBIOTICS AND RESPIRATORY TREATMENTS. WE WILL START ALBUMIN 25% IV DAILY AND REPLACE HIS MAGNESIUM WITH THE PROTOCOL. WE WILL ALSO RESUME HIS HOME MEDICATIONS. OTHERWISE, WE PLAN TO FOLLOW UP WITH AM LABS AND CHEST XRAY AND CONTINUE TO MONITOR PATIENT. - Past Medical Family Social History Past Med/Fam/Surg Hx: No changes since H&P Allergies: Allergies No Known Drug Allergies Allergy (Verified 07/01/17 15:24) - Review of Systems ROS: No change since H&P - Vital Signs and I&O's Vital Signs: Temperature 98.6 F Pulse Rate [Right Brachial] 88 Pulse Rate 101 Respiratory Rate 31 Blood Pressure [Right Arm] 177/83 Blood Pressure 167/67 O2 Sat by Pulse Oximetry 94 Intake and Output: Intake & Output 07/05/17 07/06/17 07/07/17 07/08/17 11:59 11:59 11:59 11:59 Intake Total 1317 1792 1625 Output Total 200 700 Balance 1117 1792 925 - Physical Exam Oriented: Normal Eyes: Normal. negative: Blurred Vision, Diplopia, Discharge, Pain, Redness, Photophobia, Other Ear: Normal. negative: Right, Left, Swelling, Ecchymosis, Hemotypanum, Abrasion , Laceration Nose: Normal. negative: Injected, Discharge, Blood, Other Throat: Normal Respiratory: Generalized, Wheezes, Rhonchi Cardiovascular: Normal. negative: S3, S4, Murmur : Normal Auscultation: Bowel Sounds: Normal Palpation: Normal Tenderness: Normal Skin: Normal Musculoskeletal: Normal Psychiatric: Normal Mood Description: Calm Affect: Normal Speech Pattern: Clear, Appropriate - Laboratory and Diagnostics Result Diagrams: 07/08/17 04:20 07/08/17 04:20 Labs: 07/06/17 17:51 Urine,Clean Catch Urine Culture - Preliminary 07/05/17 14:28 Blood Blood Culture - Preliminary 07/05/17 14:36 Blood Blood Culture - Preliminary Laboratory WBC 14.6 X10^3/uL (3.6-10.0) H 07/08/17 04:20 RBC 4.38 X10^6/uL (4.7-6.0) L 07/08/17 04:20 Hgb 12.0 g/dL (13.5-18.0) L 07/08/17 04:20 Hct 35.9 % (42.0-54.0) L 07/08/17 04:20 MCV 82.0 fL (80.0-100.0) 07/08/17 04:20 MCH 27.4 pg (27.0-34.0) 07/08/17 04:20 MCHC 33.5 g/dL (33.0-35.0) 07/08/17 04:20 RDW 15.6 % (11.6-16.5) 07/08/17 04:20 Plt Count 401 X10^3/uL (150.0-450.0) 07/08/17 04:20 Plt Count Comment Adequate (ADEQUATE) 07/08/17 04:20 MPV 8.1 fL (7.4-11.0) 07/08/17 04:20 Neut % 74.0 % (42.0-75.0) 07/08/17 04:20 Lymph % 10.6 % (21.0-51.0) L 07/08/17 04:20 [place] % 12.9 % (0.0-13.0) 07/08/17 04:20 Eos % 2.3 % (0.9-2.9) 07/08/17 04:20 Baso % 0.2 % (0.2-1.0) 07/08/17 04:20 Neut # 10.8 x10^3/uL (2.2-4.8) H 07/08/17 04:20 Lymph # 1.5 X10^3/uL (1.3-2.9) 07/08/17 04:20 [place] # 1.9 x10^3/uL (0.3-0.8) H 07/08/17 04:20 Eos # 0.3 x10^3/uL (0.0-0.2) H 07/08/17 04:20 Baso # 0.0 X10^3/uL (0.0-0.1) 07/08/17 04:20 Absolute Nucleated RBC 0.0 /100WBC 07/08/17 04:20 Total Counted 100 07/08/17 04:20 Neutrophils % (Manual) 77 % (39-76) H 07/08/17 04:20 Band Neutrophils % 3 % (0-10) 07/08/17 04:20 Lymphocytes % (Manual) 12 % (13-43) L 07/08/17 04:20 Monocytes % (Manual) 8 % (4-9) 07/08/17 04:20 Plt Morphology Comment Normal (NORMAL) 07/08/17 04:20 RBC Morphology Normal (NORMAL) 07/08/17 04:20 Sample Site Lr 07/07/17 11:41 ABG pH 7.480 (7.35-7.45) H 07/07/17 11:41 ABG pCO2 38.0 mmHg (35.0-45.0) 07/07/17 11:41 ABG pO2 77.0 mmHg (80.0-100.0) L 07/07/17 11:41 ABG HCO3 28.3 mmol/L (22-26) H 07/07/17 11:41 ABG O2 Saturation 96.0 % (90-100) 07/07/17 11:41 ABG Base Excess 4.6 mmol/L (-2.0-2.0) H 07/07/17 11:41 Stan Test Pos 07/07/17 11:41 A-a Gradient 75.0 mmHg 07/07/17 11:41 FiO2 28.000 02/22/18 11:41 Blood Gas Comments Pttolwellcd 07/07/17 11:41 Sodium 136 mmol/L (136-145) 07/08/17 04:20 Corrected Sodium 137 mmol/L (136-145) 07/08/17 04:20 Potassium 3.7 mmol/L (3.5-5.1) 07/08/17 04:20 Chloride 99 mmol/L (98-107) 07/08/17 04:20 Carbon Dioxide 28.8 mmol/L (21-32) 07/08/17 04:20 BUN 8 mg/dL (7-18) 07/08/17 04:20 Creatinine 0.97 mg/dL (0.70-1.30) 07/08/17 04:20 Est GFR (MDRD) Af Amer > 60 (>60) 07/08/17 04:20 Est GFR (MDRD) Non-Af > 60 (>60) 07/08/17 04:20 Glucose 151 mg/dL (65-99) H 07/08/17 04:20 POC Glucose (mg/dL) 157 mg/dL (65-99) H 07/08/17 05:58 Lactic Acid 2.0 mmol/L (0.4-2.0) 07/05/17 14:28 Calcium 8.6 mg/dL (8.5-10.1) 07/08/17 04:20 Corrected Calcium 10.3 mg/dL (8.5-10.1) H 07/08/17 04:20 Magnesium 1.6 mg/dL (1.7-2.9) L 07/08/17 04:20 Total Bilirubin 1.00 mg/dL (0.2-1.0) 07/08/17 04:20 AST 28 Units/L (15-37) 07/08/17 04:20 ALT 47 Units/L (12-78) 07/08/17 04:20 Alkaline Phosphatase 89 Units/L (46-116) 07/08/17 04:20 Total Protein 6.7 g/dL (6.4-8.2) 07/08/17 04:20 Albumin 1.9 g/dL (3.4-5.0) L 07/08/17 04:20 Globulin 4.8 g/dL (2.5-4.5) H 07/08/17 04:20 Albumin/Globulin Ratio 0.4 Ratio (1.1-2.1) L 07/08/17 04:20 Specimen Type Clean catch urine 07/06/17 17:51 Urine Color Yellow (YELLOW) 07/06/17 17:51 Urine Appearance Clear (CLEAR) 07/06/17 17:51 Urine pH 6.0 (5.0 - 8.0) 07/06/17 17:51 Ur Specific [place] 1.015 (1.000-1.030) 07/06/17 17:51 Urine Protein 2+ (NEGATIVE) 07/06/17 17:51 Urine Glucose (UA) 1+ (NEGATIVE) 07/06/17 17:51 Urine Ketones Negative (NEGATIVE) 07/06/17 17:51 Urine Occult Blood 1+ (NEGATIVE) 07/06/17 17:51 Urine Nitrite Negative (NEGATIVE) 07/06/17 17:51 Urine Bilirubin Negative (NEGATIVE) 07/06/17 17:51 Urine Urobilinogen 1+ (NORMAL) 07/06/17 17:51 Ur Leukocyte Esterase Negative (NEGATIVE) 07/06/17 17:51 Urine RBC 0-2 /HPF (NONE SEEN) 07/06/17 17:51 Urine WBC 0-1 /HPF (NONE SEEN) 07/06/17 17:51 Ur Squamous Epith Cells Rare /HPF (NEGATIVE) 07/06/17 17:51 Amorphous Sediment Trace /HPF (NEGATIVE) 07/06/17 17:51 Urine Bacteria Trace /HPF (NEGATIVE) 07/06/17 17:51 Hyaline Casts Rare /LPF (NEGATIVE) 07/06/17 17:51 Ur Culture Indicated? Yes/culture set up 07/06/17 17:51 Urine Opiates Screen Negative (NEG=<300) 07/06/17 17:51 Urine Methadone Screen Negative (NEG=<300) 07/06/17 17:51 Ur Barbiturates Screen Negative (NEG=<200) 07/06/17 17:51 Ur Phencyclidine Scrn Negative (NEG=<25) 07/06/17 17:51 Ur Amphetamines Screen Negative (NEG=<1000) 07/06/17 17:51 U Benzodiazepines Scrn Negative (NEG=<200) 07/06/17 17:51 Urine Cocaine Screen Negative (NEG=<300) 07/06/17 17:51 U Marijuana (THC) Screen Negative (NEG=<50) 07/06/17 17:51 - Plan (1) Pneumonia Status: Acute Qualifiers: Pneumonia type: due to unspecified organism Laterality: right Lung location: unspecified part of lung Qualified Code(s): J18.9 - Pneumonia, unspecified organism Plan: PNEUMONIA PROTOCOL, CONTINUE TO MONITOR (2) Hypomagnesemia Status: Acute Plan: magnesium protocol, continue to monitor (3) Hypoalbuminemia Status: Acute Plan: albumin 25% iv daily, continue to monitor
[2017-07-08] MEDS: MAG-OX TAB PO PRN (09:30)
[2017-07-08] MEDS: ALBUMIN HUMAN 25%- 100ML 100 ML IV SCH (10:11)
[2017-07-08] MEDS: LOPRESSOR TAB 25 MG PO SCH ×2 (10:12→20:51)
[2017-07-08] MEDS: LOVENOX INJ 40 MG SYR SC SCH (10:12)
[2017-07-08] MEDS: LEVAQUIN PREMIX IV 750 MG 750 MG/150 ML BAG IV SCH (10:12)
[2017-07-08] MEDS: FOLIC ACID TAB 1 MG PO SCH (10:12)
[2017-07-08] MEDS: ZESTRIL TAB 40 MG PO SCH (10:13)
[2017-07-08] MEDS: PROSCAR PO SCH (10:13)
[2017-07-08] MEDS: TAB-A-VITE PO SCH (10:13)
[2017-07-08] MEDS: ROBITUSSIN DM PO SCH ×4 (10:14→20:52)
[2017-07-08] MEDS: LIPITOR TAB 20 MG PO SCH (20:51)
[2017-07-08] MEDS: HumuLIN R SC PRN (21:14)
[2017-07-09] MEDS: DUONEB 0.5 MG/3 MG NEB SCH ×7 (00:55→20:00)
[2017-07-09] MEDS: FORTAZ or TAZICEF INJ 1 GM in NS 100 ML IV + SPIKE MINIBAG* 100 ML IV SCH ×3 (05:26→21:50)
[2017-07-09] MEDS: HumuLIN R SC PRN ×4 (05:31→21:48)
[2017-07-09 06:13] LABS: ALANINE AMINOTRANSFERASE 54 Units/L (12-78); ALBUMIN 2.1 g/dL (3.4-5.0); ALKALINE PHOSPHATASE 95 Units/L (46-116); ASPARTATE AMINO TRANSFERASE 35 Units/L (15-37); BLOOD UREA NITROGEN 9 mg/dL (7-18); CALCIUM 8.7 mg/dL (8.5-10.1); CARBON DIOXIDE 28.1 mmol/L (21-32); CHLORIDE 97 mmol/L (98-107); COR CA(FOR HYPOALB) 10.2 mg/dL (8.5-10.1); COR NA(FOR HYPERGLY) 135 mmol/L (136-145); CREATININE 0.95 mg/dL (0.70-1.30); SODIUM 133 mmol/L (136-145); eGFR BLACK RACES > 60 (>60); eGFR NON BLACK RACES > 60 (>60)
[2017-07-09 06:14] LABS: BASOPHILS # (AUTO) 0.1 X10^3/uL (0.0-0.1); BASOPHILS % (AUTO) 0.3 % (0.2-1.0); EOSINOPHILS # (AUTO) 0.3 x10^3/uL (0.0-0.2); EOSINOPHILS % (AUTO) 1.9 % (0.9-2.9); HEMATOCRIT 35.5 % (42.0-54.0); HEMOGLOBIN 11.9 g/dL (13.5-18.0); LYMPHOCYTES # (AUTO) 1.4 X10^3/uL (1.3-2.9); LYMPHOCYTES % (AUTO) 8.4 % (21.0-51.0); MEAN CORPUSCULAR HEMOGLOBIN 27.5 pg (27.0-34.0); MEAN CORPUSCULAR HGB CONC 33.5 g/dL (33.0-35.0); MEAN CORPUSCULAR VOLUME 82.1 fL (80.0-100.0); MEAN PLATELET VOLUME 7.9 fL (7.4-11.0); MONOCYTES # (AUTO) 1.7 x10^3/uL (0.3-0.8); MONOCYTES % (AUTO) 10.5 % (0.0-13.0); NEUTROPHILS # (AUTO) 12.9 x10^3/uL (2.2-4.8); NEUTROPHILS % (AUTO) 78.9 % (42.0-75.0); PLATELET COUNT 444 X10^3/uL (150.0-450.0); RED BLOOD COUNT 4.32 X10^6/uL (4.7-6.0); RED CELL DISTRIBUTION WIDTH 15.3 % (11.6-16.5); WHITE BLOOD COUNT 16.3 X10^3/uL (3.6-10.0)
[2017-07-09] MEDS: PULMICORT NEB TX 0.5 MG NEB SCH ×2 (08:40→19:59)
[2017-07-09] MEDS: LEVAQUIN PREMIX IV 750 MG 750 MG/150 ML BAG IV SCH (09:45)
[2017-07-09] MEDS: LOVENOX INJ 40 MG SYR SC SCH (09:45)
[2017-07-09] MEDS: ROBITUSSIN DM PO SCH ×4 (09:46→21:51)
[2017-07-09] MEDS: TAB-A-VITE PO SCH (09:46)
[2017-07-09] MEDS: ZESTRIL TAB 40 MG PO SCH (09:46)
[2017-07-09] MEDS: LOPRESSOR TAB 25 MG PO SCH ×2 (09:46→21:51)
[2017-07-09] MEDS: PROSCAR PO SCH (09:46)
[2017-07-09] MEDS: FOLIC ACID TAB 1 MG PO SCH (09:47)
[2017-07-09] MEDS: ALBUMIN HUMAN 25%- 100ML 100 ML IV SCH (09:47)
[2017-07-09] MEDS ORDERED: NS 1/2 1000 ML IV 1,000 ML IV ONE (12:19)
[2017-07-09] MEDS: NS 1/2 1000 ML IV 1,000 ML IV SCH ×2 (12:21→17:42)
[2017-07-09] MEDS: MAG-OX TAB PO PRN (12:22)
[2017-07-09] MEDS: K-LYTE EFFERVESCENT PO PRN (12:23)
[2017-07-09 18:59] LABS: ABG BASE EXCESS 7.4 mmol/L (-2.0-2.0)
[2017-07-09 19:00] LABS: ABG HCO3 31.2 mmol/L (22-26)
[2017-07-09] MEDS: LIPITOR TAB 20 MG PO SCH (21:51)
[2017-07-10] MEDS: DUONEB 0.5 MG/3 MG NEB SCH ×6 (00:11→20:57)
[2017-07-10] MEDS: FORTAZ or TAZICEF INJ 1 GM in NS 100 ML IV + SPIKE MINIBAG* 100 ML IV SCH ×3 (05:45→21:41)
[2017-07-10] MEDS: HumuLIN R SC PRN ×2 (05:51→11:47)
[2017-07-10 06:13] LABS: BASOPHILS # (AUTO) 0.1 X10^3/uL (0.0-0.1); BASOPHILS % (AUTO) 0.4 % (0.2-1.0); EOSINOPHILS # (AUTO) 0.2 x10^3/uL (0.0-0.2); EOSINOPHILS % (AUTO) 1.7 % (0.9-2.9); HEMATOCRIT 34.8 % (42.0-54.0); HEMOGLOBIN 11.8 g/dL (13.5-18.0); LYMPHOCYTES % (AUTO) 7.5 % (21.0-51.0); MEAN CORPUSCULAR HEMOGLOBIN 27.8 pg (27.0-34.0); MEAN CORPUSCULAR HGB CONC 33.8 g/dL (33.0-35.0); MEAN CORPUSCULAR VOLUME 82.1 fL (80.0-100.0); MEAN PLATELET VOLUME 7.5 fL (7.4-11.0); MONOCYTES # (AUTO) 1.4 x10^3/uL (0.3-0.8); MONOCYTES % (AUTO) 9.9 % (0.0-13.0); NEUTROPHILS # (AUTO) 11.1 x10^3/uL (2.2-4.8); NEUTROPHILS % (AUTO) 80.5 % (42.0-75.0); PLATELET COUNT 468 X10^3/uL (150.0-450.0); RED BLOOD COUNT 4.24 X10^6/uL (4.7-6.0); RED CELL DISTRIBUTION WIDTH 15.2 % (11.6-16.5); WHITE BLOOD COUNT 13.8 X10^3/uL (3.6-10.0)
[2017-07-10 06:17] LABS: ALANINE AMINOTRANSFERASE 62 Units/L (12-78); ALBUMIN 2.2 g/dL (3.4-5.0); ALKALINE PHOSPHATASE 94 Units/L (46-116); ASPARTATE AMINO TRANSFERASE 45 Units/L (15-37); BLOOD UREA NITROGEN 11 mg/dL (7-18); CALCIUM 8.8 mg/dL (8.5-10.1); CARBON DIOXIDE 26.5 mmol/L (21-32); CHLORIDE 98 mmol/L (98-107); COR CA(FOR HYPOALB) 10.2 mg/dL (8.5-10.1); COR NA(FOR HYPERGLY) 137 mmol/L (136-145); CREATININE 1.08 mg/dL (0.70-1.30); MAGNESIUM 1.7 mg/dL (1.7-2.9); SODIUM 135 mmol/L (136-145); eGFR BLACK RACES > 60 (>60); eGFR NON BLACK RACES > 60 (>60)
--- NOTE | 2017-07-10 07:15 | RAD ---
Examination: Portable AP chest History: Pneumonia Comparison 07/08/2017 Findings: Stable cardiac prominence with no change in the right lower lobe infiltrate. No new abnorma lity, pneumothorax or large pleural effusion is identified. Impression: No change. Reported By:
[2017-07-10] MEDS: ALBUMIN HUMAN 25%- 100ML 100 ML IV SCH (08:40)
[2017-07-10] MEDS: LEVAQUIN PREMIX IV 750 MG 750 MG/150 ML BAG IV SCH (08:40)
[2017-07-10] MEDS: LOPRESSOR TAB 25 MG PO SCH ×2 (08:41→21:44)
[2017-07-10] MEDS: TAB-A-VITE PO SCH (08:41)
[2017-07-10] MEDS: PULMICORT NEB TX 0.5 MG NEB SCH ×2 (08:41→20:57)
[2017-07-10] MEDS: ZESTRIL TAB 40 MG PO SCH (08:41)
[2017-07-10] MEDS: FOLIC ACID TAB 1 MG PO SCH (08:42)
[2017-07-10] MEDS: PROSCAR PO SCH (08:42)
[2017-07-10] MEDS: LOVENOX INJ 40 MG SYR SC SCH (08:49)
[2017-07-10] MEDS: ROBITUSSIN DM PO SCH ×4 (09:57→21:44)
[2017-07-10] MEDS ORDERED: NS 1/2 1000 ML IV 1,000 ML IV ONE (21:40)
[2017-07-10] MEDS: NS 1/2 1000 ML IV 1,000 ML IV SCH ×2 (21:41→21:44)
[2017-07-10] MEDS: LIPITOR TAB 20 MG PO SCH (21:44)
[2017-07-11] MEDS: DUONEB 0.5 MG/3 MG NEB SCH ×3 (00:19→08:47)
[2017-07-11] MEDS: FORTAZ or TAZICEF INJ 1 GM in NS 100 ML IV + SPIKE MINIBAG* 100 ML IV SCH (05:54)
[2017-07-11 06:08] LABS: BASOPHILS # (AUTO) 0.1 X10^3/uL (0.0-0.1); BASOPHILS % (AUTO) 0.6 % (0.2-1.0); EOSINOPHILS # (AUTO) 0.2 x10^3/uL (0.0-0.2); EOSINOPHILS % (AUTO) 1.4 % (0.9-2.9); HEMATOCRIT 35.7 % (42.0-54.0); LYMPHOCYTES # (AUTO) 0.8 X10^3/uL (1.3-2.9); LYMPHOCYTES % (AUTO) 6.9 % (21.0-51.0); MEAN CORPUSCULAR HEMOGLOBIN 27.6 pg (27.0-34.0); MEAN CORPUSCULAR HGB CONC 33.5 g/dL (33.0-35.0); MEAN CORPUSCULAR VOLUME 82.2 fL (80.0-100.0); MEAN PLATELET VOLUME 7.1 fL (7.4-11.0); MONOCYTES # (AUTO) 1.2 x10^3/uL (0.3-0.8); MONOCYTES % (AUTO) 10.5 % (0.0-13.0); NEUTROPHILS # (AUTO) 9.4 x10^3/uL (2.2-4.8); NEUTROPHILS % (AUTO) 80.6 % (42.0-75.0); PLATELET COUNT 459 X10^3/uL (150.0-450.0); RED BLOOD COUNT 4.34 X10^6/uL (4.7-6.0); RED CELL DISTRIBUTION WIDTH 15.3 % (11.6-16.5); WHITE BLOOD COUNT 11.7 X10^3/uL (3.6-10.0)
[2017-07-11 06:42] LABS: ALANINE AMINOTRANSFERASE 60 Units/L (12-78); ALBUMIN 2.3 g/dL (3.4-5.0); ALKALINE PHOSPHATASE 94 Units/L (46-116); ASPARTATE AMINO TRANSFERASE 49 Units/L (15-37); BLOOD UREA NITROGEN 16 mg/dL (7-18); CALCIUM 8.7 mg/dL (8.5-10.1); CARBON DIOXIDE 25.2 mmol/L (21-32); CHLORIDE 98 mmol/L (98-107); COR CA(FOR HYPOALB) 10.1 mg/dL (8.5-10.1); COR NA(FOR HYPERGLY) 134 mmol/L (136-145); CREATININE 1.11 mg/dL (0.70-1.30); SODIUM 133 mmol/L (136-145); eGFR BLACK RACES > 60 (>60); eGFR NON BLACK RACES > 60 (>60)
[2017-07-11 07:14] LABS: PSA TOTAL 11.2 ng/mL (0.0-4.0)
[2017-07-11] MEDS: NS 1/2 1000 ML IV 1,000 ML IV SCH (07:18)
[2017-07-11] MEDS: PULMICORT NEB TX 0.5 MG NEB SCH (08:47)
[2017-07-11 08:58] VITALS: BP 158/83
[2017-07-11] MEDS: ALBUMIN HUMAN 25%- 100ML 100 ML IV SCH (09:09)
[2017-07-11] MEDS: LEVAQUIN PREMIX IV 750 MG 750 MG/150 ML BAG IV SCH (09:10)
[2017-07-11] MEDS: PROSCAR PO SCH (09:11)
[2017-07-11] MEDS: TAB-A-VITE PO SCH (09:11)
[2017-07-11] MEDS: FOLIC ACID TAB 1 MG PO SCH (09:11)
[2017-07-11] MEDS: LOPRESSOR TAB 25 MG PO SCH (09:11)
[2017-07-11] MEDS: LOVENOX INJ 40 MG SYR SC SCH (09:11)
[2017-07-11] MEDS: ROBITUSSIN DM PO SCH (09:11)
[2017-07-11] MEDS: ZESTRIL TAB 40 MG PO SCH (09:19)
== END 2017-07-11 11:35 | DRG 195 ==
LOC: MED/SURG 12:49
PROVIDERS: ADMIT Internal Medicine; ATTEND Internal Medicine
DX: J18.8 Other pneumonia, unspecified organism (principal); J10.1 Influenza due to other identified influenza virus with other respiratory manifestations; D72.828 Other elevated white blood cell count; R06.02 Shortness of breath; R41.82 Altered mental status, unspecified; R26.89 Other abnormalities of gait and mobility; E83.42 Hypomagnesemia; E88.09 Other disorders of plasma-protein metabolism, not elsewhere classified
CPT/HCPCS: 36415; 36600; 70460; 71045; 71260; 80053; 80307; 81001; 82803; 83605; 83735; 84132; 84153; 84154; 85025; 87040; 87077; 87086; 87186; 94640; 94760; 99231; A4222; P9047; S0138; G0434; J0713; J1650; J1815; J1956; J7620; J7626

== ENCOUNTER 2020-12-08 13:55 | Inpatient (IN) ==
[2020-12-08 14:18] VITALS: BMI 33.0
--- NOTE | 2020-12-08 14:30 | DR.DIZZY ---
HPI Time seen Time Seen by Provider: 12/08/20 14:30 PCP Primary Care Physician: LONG RODRÍGUEZ Complaint Chief Complaint:: VISITING NURSE RIMA INTO HOME AND FOUND PT SEMICONSCIOUS AND IN SOME RESP DISTRESS. PT WAS ABLE TO SIT IN CHAIR AND WHEN CHAIR BROKE PT BECAME VERY ANXIOUS AND EXPERIENCED MORE RESP DISTRESS. 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, RIBS AND PELVIS ACCORDING TO FAMILY Past Surgical History: Yes Surgical History: Abdominal Surgery and Ortho Surgery Family History History of Family Medical Conditions: Yes Family Medical History: Hypertension Social History Do you use any recreational Drugs:: No Lives With: Alone Lives Where: [facility] Travel Risk Coronavirus risk:travel/contact w/high risk person: No Has patient experienced Coronavirus symptoms: No Infectious screening In the last 2 months have you had wt loss of >10#?: NO Have you had fever, night sweats or hemotysis?: No Have you traveled outside the country in the last 6 months?: No Isolation: Standard PE Vital Signs Vitals: Temperature 97.4 F Pulse Rate 78 Respiratory Rate 22 Blood Pressure [Left Arm] 186/93 Blood Pressure [Right Arm] 149/75 Blood Pressure 144/77 O2 Sat by Pulse Oximetry 99 ROR Labs Reviewed Result Diagrams: 12/08/20 15:16 12/08/20 15:16 Laboratory: WBC 15.7 X10^3/uL (3.6-10.0) H 12/08/20 15:16 RBC 4.65 X10^6/uL (4.7-6.0) L 12/08/20 15:16 Hgb 11.6 g/dL (13.5-18.0) L 12/08/20 15:16 Hct 35.3 % (42.0-54.0) L 12/08/20 15:16 MCV 75.9 fL (80.0-100.0) L 12/08/20 15:16 MCH 25.0 pg (27.0-34.0) L 12/08/20 15:16 MCHC 32.9 g/dL (33.0-35.0) L 12/08/20 15:16 RDW 18.3 % (11.6-16.5) H 12/08/20 15:16 Plt Count 403 X10^3/uL (150.0-450.0) 12/08/20 15:16 MPV 7.1 fL (7.4-11.0) L 12/08/20 15:16 Neut % (Auto) 89.4 % (42.0-75.0) H 12/08/20 15:16 Lymph % (Auto) 3.1 % (21.0-51.0) L 12/08/20 15:16 [place] % (Auto) 6.9 % (0.0-13.0) 12/08/20 15:16 Eos % (Auto) 0.3 % (0.9-2.9) L 12/08/20 15:16 Baso % (Auto) 0.3 % (0.2-1.0) 12/08/20 15:16 Neut # (Auto) 14.0 x10^3/uL (2.2-4.8) H 12/08/20 15:16 Lymph # (Auto) 0.5 X10^3/uL (1.3-2.9) L 12/08/20 15:16 [place] # (Auto) 1.1 x10^3/uL (0.3-0.8) H 12/08/20 15:16 Eos # (Auto) 0.0 x10^3/uL (0.0-0.2) 12/08/20 15:16 Baso # (Auto) 0.0 X10^3/uL (0.0-0.1) 12/08/20 15:16 Absolute Nucleated RBC 0.0 /100WBC 12/08/20 15:16 Sodium 138 mmol/L (136-145) 12/08/20 15:16 Corrected Sodium 142 mmol/L (136-145) 12/08/20 15:16 Potassium 4.2 mmol/L (3.5-5.1) 12/08/20 15:16 Chloride 100 mmol/L (98-107) 12/08/20 15:16 Carbon Dioxide 29.1 mmol/L (21-32) 12/08/20 15:16 BUN 19 mg/dL (7-18) H 12/08/20 15:16 Creatinine 1.63 mg/dL (0.70-1.30) H 12/08/20 15:16 Est GFR (MDRD) Af Amer 53 (>60) L 12/08/20 15:16 Est GFR (MDRD) Non-Af 44 (>60) L 12/08/20 15:16 Glucose 247 mg/dL (65-99) H 12/08/20 15:16 Lactic Acid 3.8 mmol/L (0.4-2.0) H 12/08/20 15:16 Calcium 9.3 mg/dL (8.5-10.1) 12/08/20 15:16 Corrected Calcium 10.3 mg/dL (8.5-10.1) H 12/08/20 15:16 Total Bilirubin 0.60 mg/dL (0.2-1.0) 12/08/20 15:16 AST 13 Units/L (15-37) L 12/08/20 15:16 ALT 12 Units/L (12-78) 12/08/20 15:16 Alkaline Phosphatase 148 Units/L (46-116) H 12/08/20 15:16 Creatine Kinase 59 Units/L (39-308) 12/08/20 15:16 CK-MB (CK-2) < 1.0 ng/mL (0-4.0) 12/08/20 15:16 CK/CKMB % Calc 1.7 % (<4) 12/08/20 15:16 Troponin I < 0.02 ng/mL (0-1.5) 12/08/20 15:16 Total Protein 7.7 g/dL (6.4-8.2) 12/08/20 15:16 Albumin 2.8 g/dL (3.4-5.0) L 12/08/20 15:16 Globulin 4.9 g/dL (2.5-4.5) H 12/08/20 15:16 Albumin/Globulin Ratio 0.6 Ratio (1.1-2.1) L 12/08/20 15:16 Specimen Type Catherized urine 12/08/20 19:45 Urine Color [place] (YELLOW) 12/08/20 19:45 Urine Appearance Cloudy (CLEAR) 12/08/20 19:45 Urine pH 5.0 (5.0 - 8.0) 12/08/20 19:45 Ur Specific [place] 1.025 (1.000-1.030) 12/08/20 19:45 Urine Protein 4+ (NEGATIVE) 12/08/20 19:45 Urine Glucose (UA) Negative (NEGATIVE) 12/08/20 19:45 Urine Ketones Negative (NEGATIVE) 12/08/20 19:45 Urine Occult Blood 5+ (NEGATIVE) 12/08/20 19:45 Urine Nitrite Negative (NEGATIVE) 12/08/20 19:45 Urine Bilirubin 1+ (NEGATIVE) 12/08/20 19:45 Urine Urobilinogen 1+ (NORMAL) 12/08/20 19:45 Ur Leukocyte Esterase 3+ (NEGATIVE) 12/08/20 19:45 Urine RBC 10-20 /HPF (0-3) A 12/08/20 19:45 Urine WBC Tntc /HPF (0-5) A 12/08/20 19:45 Ur Squamous Epith Cells Rare /HPF (NEGATIVE) 12/08/20 19:45 Amorphous Sediment 2+ /HPF (NEGATIVE) 12/08/20 19:45 Urine Bacteria 3+ /HPF (NEGATIVE) 12/08/20 19:45 Ur Culture Indicated? Yes/culture set up 12/08/20 19:45 SARS-CoV-2 (PCR) Negative (NEGATIVE) 12/08/20 18:27 Influenza Type A (PCR) Negative (NEGATIVE) 12/08/20 18:27 Influenza Type B (PCR) Negative (NEGATIVE) 12/08/20 18:27 RSV (PCR) Negative (NEGATIVE) 12/08/20 18:27 Opioid Opioid Risk Tool Age ([place] box if 16-45): No History of Preadolescent Sexual Abuse: No Total: 0 Total Score Risk Category: Low Risk Copyright: Rolando JACKMAN predicting aberrant behaviors
--- NOTE | 2020-12-08 15:16 | CT ---
HISTORYAltered mental statusSTUDYCT brain without contrastCOMPARISONNone availableTECHNIQUEMultiple axial images of the brain were obtained from the skull base to the vertex [without] administration of IV contrast.Dose reduction techniques including Automated Exposure Control (AEC) and adjustment of mA and kV were utlized.FINDINGS[No acute intraparenchymal hemorrhage or mass can be identified.] [No extra-axial fluid collections are seen.] [N there is a small indeterminate hypodense area in the left mid janeth which could represent subacute infarct. This could be correlated with MRI for further assessment.] Extensive small vessel ischemic changes noted throughout the periventricular deep white matter along with moderate cortical atrophy. [The ventricular system is symmetric and nondilated.] [The extracranial structures are grossly unremarkable.]IMPRESSIONExtensive small vessel ischemic changes in the tiny low-density area in the left mid janeth which could represent a subacute infarct. This could be better evaluated with MRI further characterizationElectronically signed by: QIANA KELLER (Dec 08, 2020 15:13:47)
--- NOTE | 2020-12-08 15:19 | RAD ---
HISTORYShortness of breathSTUDYChest AP [id number] is upper limits normal in size. No congestive heart failure is noted. The aorta is mildly ectatic. The bonnie are normal. The lung cruz are clear. No pleural ef fusions are identified. Bony thorax is unremarkable.IMPRESSIONNo significant abnormality identifiedEl ectronically signed by: MACK ALEJANDRA (Dec 08, 2020 15:16:30)
[2020-12-08 15:34] LABS: BASOPHILS % (AUTO) 0.3 % (0.2-1.0); EOSINOPHILS % (AUTO) 0.3 % (0.9-2.9); HEMATOCRIT 35.3 % (42.0-54.0); HEMOGLOBIN 11.6 g/dL (13.5-18.0); LYMPHOCYTES # (AUTO) 0.5 X10^3/uL (1.3-2.9); LYMPHOCYTES % (AUTO) 3.1 % (21.0-51.0); MEAN CORPUSCULAR HGB CONC 32.9 g/dL (33.0-35.0); MEAN CORPUSCULAR VOLUME 75.9 fL (80.0-100.0); MEAN PLATELET VOLUME 7.1 fL (7.4-11.0); MONOCYTES # (AUTO) 1.1 x10^3/uL (0.3-0.8); MONOCYTES % (AUTO) 6.9 % (0.0-13.0); NEUTROPHILS % (AUTO) 89.4 % (42.0-75.0); PLATELET COUNT 403 X10^3/uL (150.0-450.0); RED BLOOD COUNT 4.65 X10^6/uL (4.7-6.0); RED CELL DISTRIBUTION WIDTH 18.3 % (11.6-16.5); WHITE BLOOD COUNT 15.7 X10^3/uL (3.6-10.0)
[2020-12-08 15:58] LABS: ALANINE AMINOTRANSFERASE 12 Units/L (12-78); ALBUMIN 2.8 g/dL (3.4-5.0); ALKALINE PHOSPHATASE 148 Units/L (46-116); ASPARTATE AMINO TRANSFERASE 13 Units/L (15-37); BLOOD UREA NITROGEN 19 mg/dL (7-18); CALCIUM 9.3 mg/dL (8.5-10.1); CARBON DIOXIDE 29.1 mmol/L (21-32); CHLORIDE 100 mmol/L (98-107); CKMB % 1.7 % (<4); COR CA(FOR HYPOALB) 10.3 mg/dL (8.5-10.1); COR NA(FOR HYPERGLY) 142 mmol/L (136-145); CREATINE KINASE 59 Units/L (39-308); CREATINE KINASE MB < 1.0 ng/mL (0-4.0); CREATININE 1.63 mg/dL (0.70-1.30); SODIUM 138 mmol/L (136-145); TOTAL PROTEIN 7.7 g/dL (6.4-8.2); TROPONIN I < 0.02 ng/mL (0-1.5); eGFR NON BLACK RACES 44 (>60)
[2020-12-08 20:03] LABS: BILIRUBIN,URINE 1+ (NEGATIVE); BLOOD/HEMOGLOBIN,URINE 5+ (NEGATIVE); GLUCOSE, URINE NEGATIVE (NEGATIVE); KETONES,URINE NEGATIVE (NEGATIVE); LEUKOCYTE ESTERASE ,URINE 3+ (NEGATIVE); NITRITES,URINE NEGATIVE (NEGATIVE); PROTEIN,URINE 4+ (NEGATIVE); UROBILINOGEN,URINE 1+ (NORMAL)
[2020-12-08 20:15] LABS: APPEARANCE,URINE CLOUDY (CLEAR); COLOR,URINE ORANGE (YELLOW); SQUAMOUS EPITHELIAL CELL,UR RARE /HPF (NEGATIVE)
[2020-12-08 20:16] LABS: AMORPHOUS SEDIMENT,UR 2+ /HPF (NEGATIVE); BACTERIA,URINE 3+ /HPF (NEGATIVE)
[2020-12-08] MEDS ORDERED: NS 1000 ML 1,000 ML IV ONE (20:46)
[2020-12-08] MEDS ORDERED: ROCEPHIN 1 GRAM IV PREMIX 1 G/50 ML IV.SOLN. IV ONE ×2 (20:46→20:52)
[2020-12-08] MEDS ORDERED: NS 1000 ML 1,000 ML ONE (20:52)
[2020-12-08] MEDS ORDERED: METHOCARBAMOL 500 MG PO SCH (23:42)
[2020-12-08] MEDS ORDERED: VENTOLIN or PROAIR HFA IN PRN (23:42)
[2020-12-08] MEDS ORDERED: PROVENTIL NEB TX 0.083% 2.5MG/ 3ML IN PRN (23:42)
[2020-12-09] MEDS: GLUCOPHAGE PO SCH ×3 (01:02→20:15)
[2020-12-09] MEDS: ARICEPT TAB 10 MG PO SCH ×3 (01:34→20:15)
[2020-12-09] MEDS: NEURONTIN TAB 600 MG PO SCH ×2 (01:34→20:14)
[2020-12-09] MEDS: LIPITOR TAB 80 MG PO SCH ×2 (01:35→20:12)
[2020-12-09] MEDS: LOPRESSOR TAB 25 MG PO SCH ×3 (01:35→20:15)
[2020-12-09] MEDS: PROSCAR PO SCH ×2 (01:35→20:12)
[2020-12-09 06:04] LABS: BASOPHILS # (AUTO) 0.1 X10^3/uL (0.0-0.1); BASOPHILS % (AUTO) 0.8 % (0.2-1.0); EOSINOPHILS # (AUTO) 0.2 x10^3/uL (0.0-0.2); EOSINOPHILS % (AUTO) 1.7 % (0.9-2.9); HEMATOCRIT 33.5 % (42.0-54.0); HEMOGLOBIN 10.8 g/dL (13.5-18.0); LYMPHOCYTES # (AUTO) 1.3 X10^3/uL (1.3-2.9); LYMPHOCYTES % (AUTO) 11.7 % (21.0-51.0); MEAN CORPUSCULAR HEMOGLOBIN 24.4 pg (27.0-34.0); MEAN CORPUSCULAR HGB CONC 32.2 g/dL (33.0-35.0); MEAN CORPUSCULAR VOLUME 75.9 fL (80.0-100.0); MEAN PLATELET VOLUME 7.3 fL (7.4-11.0); MONOCYTES # (AUTO) 1.4 x10^3/uL (0.3-0.8); MONOCYTES % (AUTO) 12.2 % (0.0-13.0); NEUTROPHILS # (AUTO) 8.5 x10^3/uL (2.2-4.8); NEUTROPHILS % (AUTO) 73.6 % (42.0-75.0); PLATELET COUNT 340 X10^3/uL (150.0-450.0); RED BLOOD COUNT 4.42 X10^6/uL (4.7-6.0); WHITE BLOOD COUNT 11.5 X10^3/uL (3.6-10.0)
[2020-12-09 06:58] LABS: ALANINE AMINOTRANSFERASE 8 Units/L (12-78); ALBUMIN 2.4 g/dL (3.4-5.0); ALKALINE PHOSPHATASE 129 Units/L (46-116); ASPARTATE AMINO TRANSFERASE 19 Units/L (15-37); BLOOD UREA NITROGEN 22 mg/dL (7-18); CALCIUM 9.1 mg/dL (8.5-10.1); CARBON DIOXIDE 27.5 mmol/L (21-32); CHLORIDE 103 mmol/L (98-107); CKMB % 1.4 % (<4); COR CA(FOR HYPOALB) 10.4 mg/dL (8.5-10.1); COR NA(FOR HYPERGLY) 140 mmol/L (136-145); CREATINE KINASE 73 Units/L (39-308); CREATINE KINASE MB < 1.0 ng/mL (0-4.0); CREATININE 1.23 mg/dL (0.70-1.30); MAGNESIUM 1.8 mg/dL (1.7-2.9); SODIUM 139 mmol/L (136-145); TOTAL PROTEIN 7.1 g/dL (6.4-8.2); TROPONIN I < 0.02 ng/mL (0-1.5); eGFR NON BLACK RACES > 60 (>60)
[2020-12-09] MEDS ORDERED: ASPIRIN 81 MG CHEWTAB ONE (07:44)
[2020-12-09] MEDS ORDERED: NORVASC TAB 5 MG ONE (07:45)
[2020-12-09] MEDS ORDERED: LOPRESSOR TAB 25 MG ONE ×2 (07:45→19:30)
[2020-12-09] MEDS ORDERED: CLARITIN ONE (07:45)
[2020-12-09] MEDS ORDERED: DUONEB 0.5 MG/3 MG (3 mL) NEB ONE (08:03)
[2020-12-09] MEDS: PULMICORT NEB TX 0.5 MG NEB SCH ×2 (08:13→21:43)
[2020-12-09] MEDS: DUONEB 0.5 MG/3 MG (3 mL) NEB PRN ×2 (08:13→21:43)
[2020-12-09] MEDS ORDERED: LOVENOX INJ 40 MG SYR SC ONE (08:47)
[2020-12-09] MEDS ORDERED: SYMBICORT INH 160/4.5 mcg IN SCH (09:00)
[2020-12-09] MEDS ORDERED: PATIENT'S HOME MEDICATION (Cholecalciferol (Vitamin D3) 50 mcg (2,000 unit) Tablet) PO SCH (09:00)
[2020-12-09] MEDS ORDERED: PULMICORT NEB TX 0.5 MG NEB SCH (09:00)
[2020-12-09] MEDS ORDERED: PATIENT'S HOME MEDICATION (Multivitamin Tablet) PO SCH (09:00)
[2020-12-09] MEDS ORDERED: PATIENT'S HOME MEDICATION (Aspirin 81 mg Tablet) PO SCH (09:00)
[2020-12-09] MEDS: VITAMIN D3 25 mcg (1,000 UNITS) PO SCH (09:12)
[2020-12-09] MEDS: NORVASC TAB 10 MG PO SCH (09:12)
[2020-12-09] MEDS: ASPIRIN EC 81 MG PO SCH (09:13)
[2020-12-09] MEDS: GLUCOTROL PO SCH (09:13)
[2020-12-09] MEDS: LOVENOX INJ 40 MG SYR SC SCH (09:13)
[2020-12-09] MEDS: TAB-A-VITE PO SCH (09:13)
[2020-12-09] MEDS: CYMBALTA PO SCH (09:14)
[2020-12-09] MEDS: CLARITIN PO SCH (09:14)
[2020-12-09] MEDS ORDERED: NS 1000 ML 1,000 ML ONE (10:31)
--- NOTE | 2020-12-09 11:41 | DR.H&P ---
H&P History & Physical for Day of: H&P Date: 12/09/20 Chief Complaint Chief Complaint: Altered mental status Allergies Allergies Allergy/AdvReac Type Severity Reaction Status Date / Time No Known Drug Allergies Allergy Verified 12/08/20 14:11 History of Present Illness History of Present Illness: Pt is a 75 year old male past medical history of Hypertension, DMT2, and CVA presenting after being found altered mental status at home. Visiting nurse went to see patient when she discovered patient was semiconscious and having dyspnea. Labs/imaging: Wbc 15.7>11.5, Hgb 10.8, Plt 340, Na 139, K 4.2, Creatinine 1.63>1.23, Glucose 132, LA 3.8, Magnesium 1.8, Troponin negative, INR 1.17, UA c/w infection, Blood/Urine culture pending, COVID-19 negative, CXR: No significant abnormality identified. Brain CT: Extensive small vessel ischemic changes in the tiny low-density area in the left mid janeth which could represent a subacute infarct. This could be better evalu ated with MRI further characterization. On examination patient does not have any focal notable deficits. Will get MRI for further evaluation, altered mental status appears to have improved. Pt started on IVF, antibiotics Rocephin for cystitis, restart home medications. Will continue to monitor and follow up labs/imaging. Past Medical History Past Medical History: CVA, Diabetes and Hypertension Past Surgical History Surgical History: Abdominal Surgery and Ortho Surgery Family History Family Medical History: Hypertension Social History Does patient currently use any type of tobacco product: No Have you used tobacco products in the last 12 months: No Type of Tobacco Use: None Does any household member use tobacco: No Alcohol Use: None Drug Use: None Medications Home Medications: No Known Drug Allergies Allergy (Verified 12/08/20 14:11) Labs Result Diagrams: 12/09/20 05:15 12/09/20 05:15 Labs: 12/08/20 19:45 Urine,Clean Catch Urine Culture - Preliminary Laboratory WBC 11.5 X10^3/uL (3.6-10.0) H 12/09/20 05:15 RBC 4.42 X10^6/uL (4.7-6.0) L 12/09/20 05:15 Hgb 10.8 g/dL (13.5-18.0) L 12/09/20 05:15 Hct 33.5 % (42.0-54.0) L 12/09/20 05:15 MCV 75.9 fL (80.0-100.0) L 12/09/20 05:15 MCH 24.4 pg (27.0-34.0) L 12/09/20 05:15 MCHC 32.2 g/dL (33.0-35.0) L 12/09/20 05:15 RDW 18.0 % (11.6-16.5) H 12/09/20 05:15 Plt Count 340 X10^3/uL (150.0-450.0) 12/09/20 05:15 MPV 7.3 fL (7.4-11.0) L 12/09/20 05:15 Neut % (Auto) 73.6 % (42.0-75.0) 12/09/20 05:15 Lymph % (Auto) 11.7 % (21.0-51.0) L 12/09/20 05:15 [place] % (Auto) 12.2 % (0.0-13.0) 12/09/20 05:15 Eos % (Auto) 1.7 % (0.9-2.9) 12/09/20 05:15 Baso % (Auto) 0.8 % (0.2-1.0) 12/09/20 05:15 Neut # (Auto) 8.5 x10^3/uL (2.2-4.8) H 12/09/20 05:15 Lymph # (Auto) 1.3 X10^3/uL (1.3-2.9) 12/09/20 05:15 [place] # (Auto) 1.4 x10^3/uL (0.3-0.8) H 12/09/20 05:15 Eos # (Auto) 0.2 x10^3/uL (0.0-0.2) 12/09/20 05:15 Baso # (Auto) 0.1 X10^3/uL (0.0-0.1) 12/09/20 05:15 Absolute Nucleated RBC 0.1 /100WBC 12/09/20 05:15 PT 14.3 SECONDS (11.8-14.3) 12/09/20 05:15 INR Target Range - 12/09/20 05:15 INR 1.17 (0.8-1.3) 12/09/20 05:15 APTT 41.9 SECONDS (22.9-36.5) H 12/09/20 05:15 PTT Comment - 12/09/20 05:15 Sodium 139 mmol/L (136-145) 12/09/20 05:15 Corrected Sodium 140 mmol/L (136-145) 12/09/20 05:15 Potassium 4.2 mmol/L (3.5-5.1) 12/09/20 05:15 Chloride 103 mmol/L (98-107) 12/09/20 05:15 Carbon Dioxide 27.5 mmol/L (21-32) 12/09/20 05:15 BUN 22 mg/dL (7-18) H 12/09/20 05:15 Creatinine 1.23 mg/dL (0.70-1.30) 12/09/20 05:15 Est GFR (MDRD) Af Amer > 60 (>60) 12/09/20 05:15 Est GFR (MDRD) Non-Af > 60 (>60) 12/09/20 05:15 Glucose 132 mg/dL (65-99) H 12/09/20 05:15 POC Glucose (mg/dL) 137 mg/dL (65-99) H 12/08/20 21:59 Lactic Acid 0.9 mmol/L (0.4-2.0) 12/09/20 08:41 Calcium 9.1 mg/dL (8.5-10.1) 12/09/20 05:15 Corrected Calcium 10.4 mg/dL (8.5-10.1) H 12/09/20 05:15 Magnesium 1.8 mg/dL (1.7-2.9) 12/09/20 05:15 Total Bilirubin 0.60 mg/dL (0.2-1.0) 12/09/20 05:15 AST 19 Units/L (15-37) 12/09/20 05:15 ALT 8 Units/L (12-78) L 12/09/20 05:15 Alkaline Phosphatase 129 Units/L (46-116) H 12/09/20 05:15 Creatine Kinase 73 Units/L (39-308) 12/09/20 05:15 CK-MB (CK-2) < 1.0 ng/mL (0-4.0) 12/09/20 05:15 CK/CKMB % Calc 1.4 % (<4) 12/09/20 05:15 Troponin I < 0.02 ng/mL (0-1.5) 12/09/20 05:15 Total Protein 7.1 g/dL (6.4-8.2) 12/09/20 05:15 Albumin 2.4 g/dL (3.4-5.0) L 12/09/20 05:15 Globulin 4.7 g/dL (2.5-4.5) H 12/09/20 05:15 Albumin/Globulin Ratio 0.5 Ratio (1.1-2.1) L 12/09/20 05:15 Specimen Type Catherized urine 12/08/20 19:45 Urine Color [place] (YELLOW) 12/08/20 19:45 Urine Appearance Cloudy (CLEAR) 12/08/20 19:45 Urine pH 5.0 (5.0 - 8.0) 12/08/20 19:45 Ur Specific [place] 1.025 (1.000-1.030) 12/08/20 19:45 Urine Protein 4+ (NEGATIVE) 12/08/20 19:45 Urine Glucose (UA) Negative (NEGATIVE) 12/08/20 19:45 Urine Ketones Negative (NEGATIVE) 12/08/20 19:45 Urine Occult Blood 5+ (NEGATIVE) 12/08/20 19:45 Urine Nitrite Negative (NEGATIVE) 12/08/20 19:45 Urine Bilirubin 1+ (NEGATIVE) 12/08/20 19:45 Urine Urobilinogen 1+ (NORMAL) 12/08/20 19:45 Ur Leukocyte Esterase 3+ (NEGATIVE) 12/08/20 19:45 Urine RBC 10-20 /HPF (0-3) A 12/08/20 19:45 Urine WBC Tntc /HPF (0-5) A 12/08/20 19:45 Ur Squamous Epith Cells Rare /HPF (NEGATIVE) 12/08/20 19:45 Amorphous Sediment 2+ /HPF (NEGATIVE) 12/08/20 19:45 Urine Bacteria 3+ /HPF (NEGATIVE) 12/08/20 19:45 Ur Culture Indicated? Yes/culture set up 12/08/20 19:45 SARS-CoV-2 (PCR) Negative (NEGATIVE) 12/08/20 18:27 Influenza Type A (PCR) Negative (NEGATIVE) 12/08/20 18:27 Influenza Type B (PCR) Negative (NEGATIVE) 12/08/20 18:27 RSV (PCR) Negative (NEGATIVE) 12/08/20 18:27 Review of Systems Constitutional: Weakness; denies Fever and Chills Eyes: No Symptoms Reported ENT: No Symptoms Reported Respiratory: No Symptoms Reported Cardiovascular: No Symptoms Reported Gastrointestinal: No Symptoms Reported Genitourinary: No Symptoms Reported Musculoskeletal: No Symptoms Reported Skin: No Symptoms Reported Neurological: Confusion Physical Exam Vital Signs: Temperature 98.0 F Pulse Rate [Left] 76 Pulse Rate 69 Respiratory Rate 20 Blood Pressure [Left Arm] 145/74 Blood Pressure [Right Arm] 149/75 Blood Pressure 138/78 O2 Sat by Pulse Oximetry 96 Oriented: Normal Eyes: Normal Ear: Normal Nose: Normal Throat: Normal Respiratory: Diminished Throughout Cardiovascular: Normal : Normal Auscultation: Bowel Sounds: Normal Palpation: Normal Tenderness: Normal Skin: Normal Musculoskeletal: Normal Psychiatric: Normal Mood Description: Calm and Appropriate Affect: Normal Speech Pattern: Clear and Appropriate Assessment/Plan (1) Altered mental status, unspecified: Status: Acute Plan: Will get MRI to rule out acute CVA. (2) Cystitis: Status: Acute Plan: Rocephin, urine culture pending Review H&P Reviewed: Yes Patient was examined?: Yes
[2020-12-09 11:43] LABS: CKMB % 1.9 % (<4); CREATINE KINASE 52 Units/L (39-308); CREATINE KINASE MB < 1.0 ng/mL (0-4.0); TROPONIN I < 0.02 ng/mL (0-1.5)
--- NOTE | 2020-12-09 11:51 | MRI ---
HISTORYSUBACUTE INFARCT LEFT MID SHERMAN, generalized weaknessSTUDYMRI brain without IV contrastCOMPARISONCT 12/08/2020TECHNIQUEMultiplanar multi-sequence MRI of the brain was obtained without administration of IV contrast.FINDINGSMotion slightly limits the study. The cerebellar tonsils are normally positioned. Pituitary gland is normal in size. [Prominent diffuse volume loss in the brain with compensatory enlargement of the ventricular system.]No areas of restricted diffusion. Confluent increased T2 signal is seen in the periventricular white matter with other patchy areas of increased T2 signal present within the supratentorial white matter. 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 Mild chronic small vessel ischemic changes are suspected in the thalami and sherman, eccentric on the left in the sherman. Old lacunar infarcts are seen in the cerebellum.Normal flow voids are seen in the visualized portions of the vessels of the [place] of [place] and dural venous sinuses. [No evidence of recent intracranial hemorrhage.] A few old microhemorrhage areas are seen in the right thalamus and left basal ganglia. Normal variant osseous dural defect in the left side of the occiput.Paranasal sinuses and mastoid air cells appear clear.IMPRESSIONNo evidence of recent CVA. There are prominent chronic small vessel ischemic changes in the supratentorial white matter, thalami, and sherman. Mild chronic lacunar infarcts are seen in the cerebellum.Electronically signed by: Romeo Bell (Dec 09, 2020 11:48:30)
[2020-12-09] MEDS ORDERED: LIPITOR TAB 80 MG ONE (19:30)
[2020-12-09] MEDS ORDERED: ROCEPHIN 1 GRAM IV PREMIX 1 G/50 ML IV.SOLN. IV ONE (19:31)
[2020-12-09] MEDS ORDERED: ROCEPHIN 1 GRAM IV PREMIX 1 G/50 ML IV.SOLN. IV SCH (20:00)
[2020-12-09] MEDS ORDERED: SNACK - Diabetic Appropriate PO SCH (20:00)
[2020-12-09] MEDS ORDERED: ROBAXIN PO SCH (21:00)
[2020-12-10] MEDS ORDERED: LOVENOX INJ 40 MG SYR SC ONE (07:51)
[2020-12-10] MEDS ORDERED: CLARITIN ONE (07:51)
[2020-12-10] MEDS ORDERED: LOPRESSOR TAB 25 MG ONE (07:52)
[2020-12-10] MEDS: DUONEB 0.5 MG/3 MG (3 mL) NEB PRN (08:20)
[2020-12-10] MEDS: PULMICORT NEB TX 0.5 MG NEB SCH (08:20)
[2020-12-10] MEDS: ASPIRIN EC 81 MG PO SCH (08:40)
[2020-12-10] MEDS: NORVASC TAB 10 MG PO SCH (08:40)
[2020-12-10] MEDS: ARICEPT TAB 10 MG PO SCH (08:40)
[2020-12-10] MEDS: TAB-A-VITE PO SCH (08:41)
[2020-12-10] MEDS: LOVENOX INJ 40 MG SYR SC SCH (08:41)
[2020-12-10] MEDS: VITAMIN D3 25 mcg (1,000 UNITS) PO SCH (08:41)
[2020-12-10] MEDS: LOPRESSOR TAB 25 MG PO SCH (08:42)
[2020-12-10] MEDS: GLUCOPHAGE PO SCH (08:42)
[2020-12-10] MEDS: GLUCOTROL PO SCH (08:43)
[2020-12-10] MEDS: CLARITIN PO SCH (08:45)
[2020-12-10] MEDS: CYMBALTA PO SCH (08:45)
[2020-12-10 08:53] LABS: BASOPHILS % (AUTO) 0.4 % (0.2-1.0); EOSINOPHILS # (AUTO) 0.4 x10^3/uL (0.0-0.2); EOSINOPHILS % (AUTO) 4.1 % (0.9-2.9); HEMATOCRIT 32.7 % (42.0-54.0); HEMOGLOBIN 10.5 g/dL (13.5-18.0); LYMPHOCYTES % (AUTO) 10.7 % (21.0-51.0); MEAN CORPUSCULAR HEMOGLOBIN 24.8 pg (27.0-34.0); MEAN CORPUSCULAR HGB CONC 32.3 g/dL (33.0-35.0); MEAN CORPUSCULAR VOLUME 76.9 fL (80.0-100.0); MEAN PLATELET VOLUME 7.1 fL (7.4-11.0); MONOCYTES # (AUTO) 0.8 x10^3/uL (0.3-0.8); MONOCYTES % (AUTO) 9.4 % (0.0-13.0); NEUTROPHILS # (AUTO) 6.8 x10^3/uL (2.2-4.8); NEUTROPHILS % (AUTO) 75.4 % (42.0-75.0); PLATELET COUNT 360 X10^3/uL (150.0-450.0); RED BLOOD COUNT 4.24 X10^6/uL (4.7-6.0)
[2020-12-10 09:17] LABS: ALANINE AMINOTRANSFERASE 13 Units/L (12-78); ALBUMIN 2.3 g/dL (3.4-5.0); ALKALINE PHOSPHATASE 121 Units/L (46-116); ASPARTATE AMINO TRANSFERASE 16 Units/L (15-37); BLOOD UREA NITROGEN 22 mg/dL (7-18); CALCIUM 8.6 mg/dL (8.5-10.1); CHLORIDE 107 mmol/L (98-107); COR NA(FOR HYPERGLY) 143 mmol/L (136-145); CREATININE 1.35 mg/dL (0.70-1.30); SODIUM 142 mmol/L (136-145); TOTAL PROTEIN 6.8 g/dL (6.4-8.2); eGFR NON BLACK RACES 55 (>60)
--- NOTE | 2020-12-10 09:58 | W.DIS.FURT ---
Summary of Discharge Discharge Summary of Date Date of Exam: 12/10/20 Admission Date Date of Admission: 12/08/20 Admission Diagnosis Hospital Course: Pt is a 75 year old male past medical history of Hypertension, DMT2, and CVA admitted for altered mental status. Initial workup on Brain CT revealed: Extensive small vessel ischemic changes in the tiny low-density area in the left mid sherman which could represent a subacute infarct. This could be better evaluated with MRI further characterization. MRI was obtained that ruled out acute CVA: No evidence of recent CVA. There are prominent chronic small vessel ischemic changes in the supratentorial white matter, thalami, and sherman. Mild chronic lacunar infarcts are seen in the cerebellum. Labs: Wbc 15.7>11.5>9.0, Hgb 10.5, Plt 360, Na 142, K 4.2, Creatinine 1.35, Glucose 150. Pt had Urine culture positive for pansensitive E coli. Likely cause of patient's altered mental status. He was treated with Rocephin and responded well to treatments. Mental status back to baseline, leukocytosis trended down. Rx keflex. Pt discharged in stable condition, instructed to follow up with pcp in 3-5 days. Vital Signs: Vital Signs (72 hours) 12/08/20 14:12 12/08/20 17:27 12/08/20 17:28 Temperature 97.4 F L Pulse Rate 100 H 81 Pulse Rate [Left] Respiratory Rate 14 Blood Pressure 154/79 127/74 Blood Pressure [Left Arm] O2 Sat by Pulse Oximetry 97 95 12/08/20 17:30 12/08/20 17:45 12/08/20 17:49 Temperature Pulse Rate 82 81 80 Pulse Rate [Left] Respiratory Rate 22 Blood Pressure 137/78 137/78 Blood Pressure [Left Arm] O2 Sat by Pulse Oximetry 95 96 96 12/08/20 18:00 12/08/20 18:15 12/08/20 18:30 Temperature Pulse Rate 79 79 77 Pulse Rate [Left] Respiratory Rate Blood Pressure 119/74 Blood Pressure [Left Arm] O2 Sat by Pulse Oximetry 97 100 99 12/08/20 18:39 12/08/20 19:00 12/08/20 19:30 Temperature Pulse Rate 78 Pulse Rate [Left] Respiratory Rate Blood Pressure 121/72 159/85 Blood Pressure [Left Arm] O2 Sat by Pulse Oximetry 99 12/08/20 20:00 12/08/20 20:30 12/08/20 21:00 Temperature Pulse Rate Pulse Rate [Left] Respiratory Rate Blood Pressure 144/77 150/84 138/78 Blood Pressure [Left Arm] O2 Sat by Pulse Oximetry 12/08/20 21:24 12/09/20 00:00 12/09/20 04:00 Temperature 99.7 F H Pulse Rate Pulse Rate [Left] 81 Respiratory Rate 28 H 20 Blood Pressure Blood Pressure [Left Arm] 138/78 136/77 138/73 O2 Sat by Pulse Oximetry 94 L 12/09/20 08:00 12/09/20 08:13 12/09/20 12:00 Temperature 98.0 F 97.9 F Pulse Rate 69 Pulse Rate [Left] 76 62 Respiratory Rate 20 20 Blood Pressure Blood Pressure [Left Arm] 145/74 103/74 O2 Sat by Pulse Oximetry 95 96 97 12/09/20 16:00 12/09/20 20:00 12/09/20 21:44 Temperature 98.0 F 98.6 F Pulse Rate 79 Pulse Rate [Left] 71 72 Respiratory Rate 22 22 Blood Pressure Blood Pressure [Left Arm] 112/73 139/80 O2 Sat by Pulse Oximetry 98 97 96 12/10/20 00:00 12/10/20 04:00 12/10/20 08:00 Temperature 98.7 F 98.1 F 98.1 F Pulse Rate Pulse Rate [Left] 72 76 71 Respiratory Rate 20 18 18 Blood Pressure Blood Pressure [Left Arm] 142/78 143/85 149/72 O2 Sat by Pulse Oximetry 97 97 98 Labs: Laboratory Last Values WBC 9.0 X10^3/uL (3.6-10.0) 12/10/20 08:40 RBC 4.24 X10^6/uL (4.7-6.0) L 12/10/20 08:40 Hgb 10.5 g/dL (13.5-18.0) L 12/10/20 08:40 Hct 32.7 % (42.0-54.0) L 12/10/20 08:40 MCV 76.9 fL (80.0-100.0) L 12/10/20 08:40 MCH 24.8 pg (27.0-34.0) L 12/10/20 08:40 MCHC 32.3 g/dL (33.0-35.0) L 12/10/20 08:40 RDW 18.0 % (11.6-16.5) H 12/10/20 08:40 Plt Count 360 X10^3/uL (150.0-450.0) 12/10/20 08:40 MPV 7.1 fL (7.4-11.0) L 12/10/20 08:40 Neut % (Auto) 75.4 % (42.0-75.0) H 12/10/20 08:40 Lymph % (Auto) 10.7 % (21.0-51.0) L 12/10/20 08:40 [place] % (Auto) 9.4 % (0.0-13.0) 12/10/20 08:40 Eos % (Auto) 4.1 % (0.9-2.9) H 12/10/20 08:40 Baso % (Auto) 0.4 % (0.2-1.0) 12/10/20 08:40 Neut # (Auto) 6.8 x10^3/uL (2.2-4.8) H 12/10/20 08:40 Lymph # (Auto) 1.0 X10^3/uL (1.3-2.9) L 12/10/20 08:40 [place] # (Auto) 0.8 x10^3/uL (0.3-0.8) 12/10/20 08:40 Eos # (Auto) 0.4 x10^3/uL (0.0-0.2) H 12/10/20 08:40 Baso # (Auto) 0.0 X10^3/uL (0.0-0.1) 12/10/20 08:40 Absolute Nucleated RBC 0.0 /100WBC 12/10/20 08:40 PT 14.3 SECONDS (11.8-14.3) 12/09/20 05:15 INR Target Range - 12/09/20 05:15 INR 1.17 (0.8-1.3) 12/09/20 05:15 APTT 41.9 SECONDS (22.9-36.5) H 12/09/20 05:15 PTT Comment - 12/09/20 05:15 Sodium 142 mmol/L (136-145) 12/10/20 08:40 Corrected Sodium 143 mmol/L (136-145) 12/10/20 08:40 Potassium 4.2 mmol/L (3.5-5.1) 12/10/20 08:40 Chloride 107 mmol/L (98-107) 12/10/20 08:40 Carbon Dioxide 29.0 mmol/L (21-32) 12/10/20 08:40 BUN 22 mg/dL (7-18) H 12/10/20 08:40 Creatinine 1.35 mg/dL (0.70-1.30) H 12/10/20 08:40 Est GFR (MDRD) Af Amer > 60 (>60) 12/10/20 08:40 Est GFR (MDRD) Non-Af 55 (>60) L 12/10/20 08:40 Glucose 150 mg/dL (65-99) H 12/10/20 08:40 POC Glucose (mg/dL) 136 mg/dL (65-99) H 12/10/20 05:58 Lactic Acid 0.9 mmol/L (0.4-2.0) 12/09/20 08:41 Calcium 8.6 mg/dL (8.5-10.1) 12/10/20 08:40 Corrected Calcium 10.0 mg/dL (8.5-10.1) 12/10/20 08:40 Magnesium 1.8 mg/dL (1.7-2.9) 12/09/20 05:15 Total Bilirubin 0.20 mg/dL (0.2-1.0) 12/10/20 08:40 AST 16 Units/L (15-37) 12/10/20 08:40 ALT 13 Units/L (12-78) 12/10/20 08:40 Alkaline Phosphatase 121 Units/L (46-116) H 12/10/20 08:40 Creatine Kinase 52 Units/L (39-308) 12/09/20 10:50 CK-MB (CK-2) < 1.0 ng/mL (0-4.0) 12/09/20 10:50 CK/CKMB % Calc 1.9 % (<4) 12/09/20 10:50 Troponin I < 0.02 ng/mL (0-1.5) 12/09/20 10:50 Total Protein 6.8 g/dL (6.4-8.2) 12/10/20 08:40 Albumin 2.3 g/dL (3.4-5.0) L 12/10/20 08:40 Globulin 4.5 g/dL (2.5-4.5) 12/10/20 08:40 Albumin/Globulin Ratio 0.5 Ratio (1.1-2.1) L 12/10/20 08:40 Specimen Type Catherized urine 12/08/20 19:45 Urine Color [place] (YELLOW) 12/08/20 19:45 Urine Appearance Cloudy (CLEAR) 12/08/20 19:45 Urine pH 5.0 (5.0 - 8.0) 12/08/20 19:45 Ur Specific [place] 1.025 (1.000-1.030) 12/08/20 19:45 Urine Protein 4+ (NEGATIVE) 12/08/20 19:45 Urine Glucose (UA) Negative (NEGATIVE) 12/08/20 19:45 Urine Ketones Negative (NEGATIVE) 12/08/20 19:45 Urine Occult Blood 5+ (NEGATIVE) 12/08/20 19:45 Urine Nitrite Negative (NEGATIVE) 12/08/20 19:45 Urine Bilirubin 1+ (NEGATIVE) 12/08/20 19:45 Urine Urobilinogen 1+ (NORMAL) 12/08/20 19:45 Ur Leukocyte Esterase 3+ (NEGATIVE) 12/08/20 19:45 Urine RBC 10-20 /HPF (0-3) A 12/08/20 19:45 Urine WBC Tntc /HPF (0-5) A 12/08/20 19:45 Ur Squamous Epith Cells Rare /HPF (NEGATIVE) 12/08/20 19:45 Amorphous Sediment 2+ /HPF (NEGATIVE) 12/08/20 19:45 Urine Bacteria 3+ /HPF (NEGATIVE) 12/08/20 19:45 Ur Culture Indicated? Yes/culture set up 12/08/20 19:45 SARS-CoV-2 (PCR) Negative (NEGATIVE) 12/08/20 18:27 Influenza Type A (PCR) Negative (NEGATIVE) 12/08/20 18:27 Influenza Type B (PCR) Negative (NEGATIVE) 12/08/20 18:27 RSV (PCR) Negative (NEGATIVE) 12/08/20 18:27 Reason For Visit: SUBACUTE INFARCT LEFT MID SHERMAN, GENERALIZED Discharge Date Discharge Date: 12/10/20 Discharge Diagnosis All Active Problems (Updated 12/09/20 @ 12:58 by Rufino Tahyer) Cystitis (Acute) Altered mental status, unspecified (Acute) Chest pain due to GERD (Acute) Sepsis (Acute) Cellulitis and abscess of hand (Acute) Pneumonia (Acute) Hypomagnesemia (Acute) Hypoalbuminemia (Acute) Plan of Treatment: Continue with present treatment and follow up plan. Pt is to keep follow up appointment as instructed and take medications as ordered. Discharge Medications Discharge Medications: No Known Drug Allergies Allergy (Verified 12/08/20 14:11) Follow up and Referral Follow Up: 1 Week Discharge Disposition Discharge Disposition: Home Discharge Condition: Stable Discharge Plan Discharge Plan Hospital Course: Pt is a 75 year old male past medical history of Hypertension, DMT2, and CVA admitted for altered mental status. Initial workup on Brain CT revealed: Extensive small vessel ischemic changes in the tiny low-density area in the left mid sherman which could represent a subacute infarct. This could be better evaluated with MRI further characterization. MRI was obtained that ruled out acute CVA: No evidence of recent CVA. There are prominent chronic small vessel ischemic changes in the supratentorial white matter, thalami, and sherman. Mild chronic lacunar infarcts are seen in the cerebellum. Labs: Wbc 15.7>11.5>9.0, Hgb 10.5, Plt 360, Na 142, K 4.2, Creatinine 1.35, Glucose 150. Pt had Urine culture positive for pansensitive E coli. Likely cause of patient's altered mental status. He was treated with Rocephin and responded well to treatments. Mental status back to baseline, leukocytosis trended down. Rx keflex. Pt discharged in stable condition, instructed to follow up with pcp in 3-5 days. Patient Disposition: HOME HEALTH SERVICE Condition: Stable Health Concerns: Post Hospitalization: new medications and changes needed to prevent readmission or further decline. Pt educated and given instructions on all concerns. Care Plan Goals: Problem: Infection Goal: Temperature within normal limits. Resolved infection. Instructions: Follow provided instructions. Follow up with primary physician as directed. Contact primary care physician or report to the closest Emergency Room if condition worsens. Plan of Treatment: Continue with present treatment and follow up plan. Pt is to keep follow up appointment as instructed and take medications as ordered. Prescriptions: New cephalexin 500 mg capsule 500 mg PO BID 5 Days Qty: 10 RF: 0 Continued multivitamin Tablet 1 tab PO DAILY RF: 0 methocarbamol 500 mg Tablet 500 mg PO HS RF: 0 atorvastatin 80 mg Tablet 80 mg PO HS RF: 0 gabapentin 600 mg Tablet 600 mg PO HS RF: 0 albuterol sulfate 2.5 mg /3 mL (0.083 %) Solution For Nebulization 2.5 mg inhalation .PRN PRN (Reason: Respiratory Distress) RF: 0 donepezil 10 mg Tablet 10 mg PO BID RF: 0 amlodipine 10 mg Tablet 10 mg PO DAILY RF: 0 metformin 1,000 mg Tablet 1,000 mg PO BID RF: 0 aspirin 81 mg Tablet 81 mg PO DAILY RF: 0 albuterol sulfate [ProAir HFA] 90 mcg/actuation Hfa Aerosol Inhaler 2 puff INHALATION Q4HHR PRN (Reason: Respiratory Distress) RF: 0 finasteride 5 mg Tablet 5 mg PO HS RF: 0 metoprolol tartrate 25 mg Tablet 25 mg PO BID RF: 0 duloxetine 30 mg Capsule,Delayed Release(Dr/Ec) 30 mg PO DAILY RF: 0 cholecalciferol (vitamin D3) 50 mcg (2,000 unit) Tablet 50 mcg PO DAILY RF: 0 ergocalciferol (vitamin D2) 1,250 mcg (50,000 unit) Capsule 1,250 unit PO .WEEKLY RF: 0 loratadine 10 mg Tablet 10 mg PO DAILY RF: 0 glipizide 5 mg Tablet 2.5 mg PO DAILY RF: 0 budesonide-formoterol [Symbicort] 160-4.5 mcg/actuation Hfa Aerosol Inhaler 2 puff INHALATION BID RF: 0 Follow ups/Referrals Follow ups/Referrals: Rufino Thayer [STAFF PHYSICIAN] - 12/15/20 2:00 pm Instructions Instructions: Diabetes Mellitus and Sick Day Management, Urinary Tract Infection, Adult, [id number], Hypertension, [id number], E. Coli Infection
[2020-12-10 12:22] VITALS: BP 140/68
== END 2020-12-10 13:16 | disposition home health service (06) | DRG 690 ==
LOC: ER 13:55 → OBS 20:01
PROVIDERS: ADMIT Family Medicine; ATTEND Family Medicine
DX: R94.31 Abnormal electrocardiogram [ECG] [EKG]; R41.82 Altered mental status, unspecified; Z86.73 Personal history of transient ischemic attack (TIA), and cerebral infarction without residual deficits; N30.90 Cystitis, unspecified without hematuria; R26.89 Other abnormalities of gait and mobility; E11.65 Type 2 diabetes mellitus with hyperglycemia; Z20.822 Contact with and (suspected) exposure to COVID-19; B96.29 Other Escherichia coli [E. coli] as the cause of diseases classified elsewhere; I10 Essential (primary) hypertension

== ENCOUNTER 2020-12-12 21:05 | Inpatient (IN) ==
[2020-12-12 21:19] VITALS: BMI 33.0
--- NOTE | 2020-12-12 21:59 | DR.AMS ---
HPI Time Seen Time Seen by Provider: 12/12/20 21:14 PCP Primary Care Physician: ERIC HOLM HPI Comment HPI Comment: Patient found unresponsive in his home by family. Unknown down time. Patient recently discharged from hospital. Patient denies pain, but otherwise does not contribute to history. Complaint Chief Complaint:: [facility] WAS DISPATCHED TO PATIENT'S RESIDENCE FOR SYNCOPAL EPISODE. PT'S FAMILY STATES PT LIVES ALONE IN A [place] AND THEY CAME OVER TO CHECK ON HIM AND HE WAS FOUND IN THE FLOOR. FAMILY TOLD EMS THAT PT WAS DISCHARGED FROM HOSPITAL YESTERDAY WITH UTI. COVID-19 Coronavirus risk:travel/contact w/high risk person: No Has patient experienced Coronavirus symptoms: No Source History Provided: EMS Mode of Arrival Mode of Arrival: Stretcher Timing Onset of Chief Complaint: 12/12/20 PMH PMH Past Medical History: Yes Past Medical History: Alzheimers, COPD, CVA, Dementia, Diabetes, Dyslipidemia and Hypertension Past Medical History Comment: PROSTATE CANCER AAA Past Surgical History: Yes Surgical History: Abdominal Surgery and Ortho Surgery Family History History of Family Medical Conditions: Yes Family Medical History: Coronary Artery Disease and Hypertension Social History Does any household member use tobacco: No Alcohol Use: None Do you use any recreational Drugs:: No Lives With: Alone Lives Where: [place] Travel Risk Coronavirus risk:travel/contact w/high risk person: No Has patient experienced Coronavirus symptoms: No Infectious screening Have you traveled outside the country in the last 6 months?: No Isolation: Standard ROS Review of Systems Constitutional: See HPI Unable to Obtain Due To: Altered mental status PE Vitals Vital Signs: Temp Pulse Resp BP BP Pulse Ox 12/12/20 21:06 98.2 F 92 H 16 126/78 99 12/10/20 12:00 140/68 General Limitations: No Limitations General Appearance: Alert and In No Apparent Distress Head Head Exam: Normal Inspection, Atraumatic and Normocephalic Eyes Eye exam: Normal Appearance and EOMI ENT ENT Exam: Normal Exam Neck Neck Exam: Normal Inspection Chest Chest Inspection: Normal Inspection and Symmetric Chest Wall Rise Respiratory Respiratory Exam: Normal Lung Sounds Bilat Respiratory Exam: Bilateral: Clear to Auscultation Cardiovascular Cardiovascular Exam: Regular Rate, Normal Rhythm and Normal Heart Sounds COURSE Treatment Treatment: unremarkable Consultation Consultation Comments: spoke with Dr. Thayer who accepts patient for admission [facility] Labs Reviewed Laboratory Results Reviewed?: Yes Result Diagrams: 12/12/20 21:33 12/12/20 21:33 Laboratory: WBC 9.5 X10^3/uL (3.6-10.0) 12/12/20 21: RBC 4.63 X10^6/uL (4.7-6.0) L 12/12/20 21:33 Hgb 11.5 g/dL (13.5-18.0) L 12/12/20 21: Hct 35.2 % (42.0-54.0) L 12/12/20 21: MCV 76.1 fL (80.0-100.0) L 12/12/20 21: MCH 24.9 pg (27.0-34.0) L 12/12/20 21: MCHC 32.7 g/dL (33.0-35.0) L 12/12/20 21: RDW 18.4 % (11.6-16.5) H 12/12/20 21: Plt Count 433 X10^3/uL (150.0-450.0) 12/12/20 21: MPV 7.3 fL (7.4-11.0) L 12/12/20 21:33 Neut % (Auto) 76.7 % (42.0-75.0) H 12/12/20 21:33 Lymph % (Auto) 10.1 % (21.0-51.0) L 12/12/20 21:33 [place] % (Auto) 8.8 % (0.0-13.0) 12/12/20 21:33 Eos % (Auto) 3.8 % (0.9-2.9) H 12/12/20 21:33 Baso % (Auto) 0.6 % (0.2-1.0) 12/12/20 21:33 Neut # (Auto) 7.3 x10^3/uL (2.2-4.8) H 12/12/20 21:33 Lymph # (Auto) 1.0 X10^3/uL (1.3-2.9) L 12/12/20 21:33 [place] # (Auto) 0.8 x10^3/uL (0.3-0.8) 12/12/20 21:33 Eos # (Auto) 0.4 x10^3/uL (0.0-0.2) H 12/12/20 21:33 Baso # (Auto) 0.1 X10^3/uL (0.0-0.1) 12/12/20 21:33 Absolute Nucleated RBC 0.0 /100WBC 12/12/20 21:33 Sodium 144 mmol/L (136-145) 12/12/20 21:33 Corrected Sodium 145 mmol/L (136-145) 12/12/20 21:33 Potassium 4.7 mmol/L (3.5-5.1) 12/12/20 21:33 Chloride 105 mmol/L (98-107) 12/12/20 21: Carbon Dioxide 30.7 mmol/L (21-32) 12/12/20 21:33 BUN 19 mg/dL (7-18) H 12/12/20 21:33 Creatinine 1.74 mg/dL (0.70-1.30) H 12/12/20 21:33 Est GFR (MDRD) Af Amer 50 (>60) L 12/12/20 21:33 Est GFR (MDRD) Non-Af 41 (>60) L 12/12/20 21:33 Glucose 148 mg/dL (65-99) H 12/12/20 21:33 Calcium 9.5 mg/dL (8.5-10.1) 12/12/20 21: Corrected Calcium 10.4 mg/dL (8.5-10.1) H 12/12/20 21:33 Total Bilirubin 0.30 mg/dL (0.2-1.0) 12/12/20 21:33 AST 16 Units/L (15-37) 12/12/20 21:33 ALT 15 Units/L (12-78) 12/12/20 21:33 Alkaline Phosphatase 134 Units/L (46-116) H 12/12/20 21:33 Creatine Kinase 20 Units/L (39-308) L 12/12/20 21:33 CK-MB (CK-2) < 1.0 ng/mL (0-4.0) 12/12/20 21:33 CK/CKMB % Calc 5.0 % (<4) 12/12/20 21:33 Troponin I < 0.02 ng/mL (0-1.5) 12/12/20 21:33 Total Protein 7.7 g/dL (6.4-8.2) 12/12/20 21:33 Albumin 2.9 g/dL (3.4-5.0) L 12/12/20 21:33 Globulin 4.8 g/dL (2.5-4.5) H 12/12/20 21:33 Albumin/Globulin Ratio 0.6 Ratio (1.1-2.1) L 12/12/20 21:33 XRAY X-ray Results: STUDY: FRONTAL VIEW CHEST COMPARISON: December 08, 2020 HISTORY: SYNCOPAL EPISODE FINDINGS: Tortuous aorta is noted similar in appearance to the prior study. No focal consolidation is seen. The heart size is within normal limits. The mediastinum is unremarkable. There is no evidence of pleural effusion or gross pneumothorax. The trachea is midline. IMPRESSION: 1. No focal consolidation is seen. 2. The heart size is normal. Electronically signed by: Rosendo Woods (Dec 12, 2020 22:47:42) Opioid Opioid Risk Tool Age ([place] box if 16-45): No History of Preadolescent Sexual Abuse: No Total: 0 Total Score Risk Category: Low Risk Copyright: Rolando JACKMAN predicting aberrant behaviors Diagnosis Discharge Problem: Altered mental status, unspecified Qualifiers: Altered mental status type: unspecified Qualified Code(s): R41.82 - Altered mental status, unspecified Acute renal failure Qualifiers: Acute renal failure type: unspecified Qualified Code(s): N17.9 - Acute kidney failure, unspecified
[2020-12-12 22:05] LABS: BASOPHILS # (AUTO) 0.1 X10^3/uL (0.0-0.1); BASOPHILS % (AUTO) 0.6 % (0.2-1.0); EOSINOPHILS # (AUTO) 0.4 x10^3/uL (0.0-0.2); EOSINOPHILS % (AUTO) 3.8 % (0.9-2.9); HEMATOCRIT 35.2 % (42.0-54.0); HEMOGLOBIN 11.5 g/dL (13.5-18.0); LYMPHOCYTES % (AUTO) 10.1 % (21.0-51.0); MEAN CORPUSCULAR HEMOGLOBIN 24.9 pg (27.0-34.0); MEAN CORPUSCULAR HGB CONC 32.7 g/dL (33.0-35.0); MEAN CORPUSCULAR VOLUME 76.1 fL (80.0-100.0); MEAN PLATELET VOLUME 7.3 fL (7.4-11.0); MONOCYTES # (AUTO) 0.8 x10^3/uL (0.3-0.8); MONOCYTES % (AUTO) 8.8 % (0.0-13.0); NEUTROPHILS # (AUTO) 7.3 x10^3/uL (2.2-4.8); NEUTROPHILS % (AUTO) 76.7 % (42.0-75.0); PLATELET COUNT 433 X10^3/uL (150.0-450.0); RED BLOOD COUNT 4.63 X10^6/uL (4.7-6.0); RED CELL DISTRIBUTION WIDTH 18.4 % (11.6-16.5); WHITE BLOOD COUNT 9.5 X10^3/uL (3.6-10.0)
[2020-12-12 22:24] LABS: ALANINE AMINOTRANSFERASE 15 Units/L (12-78); ALBUMIN 2.9 g/dL (3.4-5.0); ALKALINE PHOSPHATASE 134 Units/L (46-116); ASPARTATE AMINO TRANSFERASE 16 Units/L (15-37); BLOOD UREA NITROGEN 19 mg/dL (7-18); CALCIUM 9.5 mg/dL (8.5-10.1); CARBON DIOXIDE 30.7 mmol/L (21-32); CHLORIDE 105 mmol/L (98-107); COR CA(FOR HYPOALB) 10.4 mg/dL (8.5-10.1); COR NA(FOR HYPERGLY) 145 mmol/L (136-145); CREATINE KINASE 20 Units/L (39-308); CREATINE KINASE MB < 1.0 ng/mL (0-4.0); CREATININE 1.74 mg/dL (0.70-1.30); SODIUM 144 mmol/L (136-145); TOTAL PROTEIN 7.7 g/dL (6.4-8.2); TROPONIN I < 0.02 ng/mL (0-1.5); eGFR NON BLACK RACES 41 (>60)
--- NOTE | 2020-12-12 22:49 | RAD ---
STUDY: FRONTAL VIEW CHESTCOMPARISON: December 08, 2020HISTORY: SYNCOPAL EPISODEFINDINGS:Tortuous aorta is noted similar in appearance to the prior study.No focal consolidation is seen.The heart size is within normal limits.The mediastinum is unremarkable.There is no evidence of pleural effusion or gross pneumothorax.The trachea is midline.IMPRESSION:1. No focal consolidation is seen.2. The heart size is normal.Electronically signed by: Rosendo Woods (Dec 12, 2020 22:47:42)
[2020-12-13] MEDS: NS 1000 ML 1,000 ML IV SCH ×2 (02:45→14:44)
[2020-12-13] MEDS ORDERED: VITAMIN D (1.25MG) PO SCH (06:05)
[2020-12-13] MEDS ORDERED: PROVENTIL NEB TX 0.083% 2.5MG/ 3ML IN PRN (06:05)
[2020-12-13] MEDS ORDERED: VENTOLIN or PROAIR HFA IN PRN (06:05)
[2020-12-13 07:09] LABS: BASOPHILS # (AUTO) 0.1 X10^3/uL (0.0-0.1); BASOPHILS % (AUTO) 0.7 % (0.2-1.0); EOSINOPHILS # (AUTO) 0.3 x10^3/uL (0.0-0.2); EOSINOPHILS % (AUTO) 3.6 % (0.9-2.9); HEMATOCRIT 33.7 % (42.0-54.0); HEMOGLOBIN 11.1 g/dL (13.5-18.0); LYMPHOCYTES # (AUTO) 1.1 X10^3/uL (1.3-2.9); LYMPHOCYTES % (AUTO) 14.4 % (21.0-51.0); MEAN CORPUSCULAR HEMOGLOBIN 24.9 pg (27.0-34.0); MEAN CORPUSCULAR HGB CONC 32.9 g/dL (33.0-35.0); MEAN CORPUSCULAR VOLUME 75.9 fL (80.0-100.0); MEAN PLATELET VOLUME 7.6 fL (7.4-11.0); MONOCYTES # (AUTO) 0.8 x10^3/uL (0.3-0.8); NEUTROPHILS # (AUTO) 5.4 x10^3/uL (2.2-4.8); NEUTROPHILS % (AUTO) 71.3 % (42.0-75.0); PLATELET COUNT 410 X10^3/uL (150.0-450.0); RED BLOOD COUNT 4.44 X10^6/uL (4.7-6.0); RED CELL DISTRIBUTION WIDTH 18.5 % (11.6-16.5); WHITE BLOOD COUNT 7.5 X10^3/uL (3.6-10.0)
[2020-12-13 07:32] LABS: ALBUMIN 2.8 g/dL (3.4-5.0); CALCIUM 9.5 mg/dL (8.5-10.1); CARBON DIOXIDE 27.5 mmol/L (21-32); COR CA(FOR HYPOALB) 10.5 mg/dL (8.5-10.1); CREATININE 1.48 mg/dL (0.70-1.30); TOTAL PROTEIN 7.5 g/dL (6.4-8.2)
[2020-12-13] MEDS: PULMICORT NEB TX 0.5 MG NEB SCH ×2 (08:53→20:46)
[2020-12-13] MEDS: PROVENTIL NEB TX 0.083% 2.5MG/ 3ML NEB PRN (08:53)
[2020-12-13] MEDS ORDERED: PATIENT'S HOME MEDICATION (Cholecalciferol (Vitamin D3) 50 mcg (2,000 unit) Tablet) PO SCH (09:00)
[2020-12-13] MEDS ORDERED: KEFLEX CAP 500 MG PO SCH (09:00)
[2020-12-13] MEDS ORDERED: PATIENT'S HOME MEDICATION (Multivitamin Tablet) PO SCH (09:00)
[2020-12-13] MEDS ORDERED: PATIENT'S HOME MEDICATION (Aspirin 81 mg Tablet) PO SCH (09:00)
[2020-12-13] MEDS ORDERED: GLUCOPHAGE ONE ×2 (10:53→20:17)
[2020-12-13] MEDS: GLUCOPHAGE PO SCH ×2 (10:56→20:25)
[2020-12-13] MEDS: VITAMIN D3 25 mcg (1,000 UNITS) PO SCH (10:57)
[2020-12-13] MEDS: GLUCOTROL PO SCH (10:57)
[2020-12-13] MEDS: ARICEPT TAB 10 MG PO SCH ×2 (10:57→20:25)
[2020-12-13] MEDS: LOPRESSOR TAB 25 MG PO SCH ×2 (10:57→20:25)
[2020-12-13] MEDS: TAB-A-VITE PO SCH (10:57)
[2020-12-13] MEDS: CYMBALTA PO SCH (10:57)
[2020-12-13] MEDS: NORVASC TAB 10 MG PO SCH (10:59)
[2020-12-13] MEDS: CLARITIN PO SCH (10:59)
[2020-12-13] MEDS: ASPIRIN EC 81 MG PO SCH (10:59)
--- NOTE | 2020-12-13 13:07 | DR.H&P ---
H&P History & Physical for Day of: H&P Date: 12/13/20 Chief Complaint Chief Complaint: Syncope Dehydration Allergies Allergies Allergy/AdvReac Type Severity Reaction Status Date / Time No Known Drug Allergies Allergy Verified 12/08/20 14:11 History of Present Illness History of Present Illness: Pt is a 75 year old male past medical history Hypertension, DMT2, CVA, and Dementia, presenting after having syncopal episode at home and being found on the floor by family members. Labs/imaging: Wbc 7.5, Hgb 11.1, Plt 410, Na 143, K 4.3, Creatinine 1.74>1.48, Glucose 148, Troponin negative, COVID19/Flu negative, UA negative, CXR: 1. No focal consolidation is seen. 2. The heart size is normal. Pt was admitted for dehydration and acute renal failure. He was started on IVF NS@80ml/h. Home medications were resumed. On exam patient is alert and oriented. He does have episodes of confusion per family that is his baseline. Sister is concerned that patient is unable to take care of self at home as falls and confusion have increased in frequency recently. Will consult case management for possible placement. Order PT/OT evaluation. Otherwise continue with current treatment plan. Monitor and follow up labs in the morning. Past Medical History Past Medical History: Alzheimers, COPD, CVA, Dementia, Diabetes, Dyslipidemia and Hypertension Past Surgical History Surgical History: Abdominal Surgery and Ortho Surgery Family History Family Medical History: Hypertension Social History Does patient currently use any type of tobacco product: No Have you used tobacco products in the last 12 months: No Type of Tobacco Use: None Does any household member use tobacco: No Alcohol Use: None Drug Use: None Medications Home Medications: No Known Drug Allergies Allergy (Verified 12/08/20 14:11) Labs Result Diagrams: 12/13/20 05:47 12/13/20 05:47 Labs: Laboratory WBC 7.5 X10^3/uL (3.6-10.0) 12/13/20 05:47 RBC 4.44 X10^6/uL (4.7-6.0) L 12/13/20 05:47 Hgb 11.1 g/dL (13.5-18.0) L 12/13/20 05:47 Hct 33.7 % (42.0-54.0) L 12/13/20 05:47 MCV 75.9 fL (80.0-100.0) L 12/13/20 05:47 MCH 24.9 pg (27.0-34.0) L 12/13/20 05:47 MCHC 32.9 g/dL (33.0-35.0) L 12/13/20 05:47 RDW 18.5 % (11.6-16.5) H 12/13/20 05:47 Plt Count 410 X10^3/uL (150.0-450.0) 12/13/20 05:47 MPV 7.6 fL (7.4-11.0) 12/13/20 05:47 Neut % (Auto) 71.3 % (42.0-75.0) 12/13/20 05:47 Lymph % (Auto) 14.4 % (21.0-51.0) L 12/13/20 05:47 [place] % (Auto) 10.0 % (0.0-13.0) 12/13/20 05:47 Eos % (Auto) 3.6 % (0.9-2.9) H 12/13/20 05:47 Baso % (Auto) 0.7 % (0.2-1.0) 12/13/20 05:47 Neut # (Auto) 5.4 x10^3/uL (2.2-4.8) H 12/13/20 05:47 Lymph # (Auto) 1.1 X10^3/uL (1.3-2.9) L 12/13/20 05:47 [place] # (Auto) 0.8 x10^3/uL (0.3-0.8) 12/13/20 05:47 Eos # (Auto) 0.3 x10^3/uL (0.0-0.2) H 12/13/20 05:47 Baso # (Auto) 0.1 X10^3/uL (0.0-0.1) 12/13/20 05:47 Absolute Nucleated RBC 0.1 /100WBC 12/13/20 05:47 Sodium 143 mmol/L (136-145) 12/13/20 05:47 Corrected Sodium 144 mmol/L (136-145) 12/13/20 05:47 Potassium 4.3 mmol/L (3.5-5.1) 12/13/20 05:47 Chloride 106 mmol/L (98-107) 12/13/20 05:47 Carbon Dioxide 27.5 mmol/L (21-32) 12/13/20 05:47 BUN 21 mg/dL (7-18) H 12/13/20 05:47 Creatinine 1.48 mg/dL (0.70-1.30) H 12/13/20 05:47 Est GFR (MDRD) Af Amer 60 (>60) 12/13/20 05:47 Est GFR (MDRD) Non-Af 49 (>60) L 12/13/20 05:47 Glucose 134 mg/dL (65-99) H 12/13/20 05:47 POC Glucose (mg/dL) 162 mg/dL (65-99) H 12/13/20 11:40 Calcium 9.5 mg/dL (8.5-10.1) 12/13/20 05:47 Corrected Calcium 10.5 mg/dL (8.5-10.1) H 12/13/20 05:47 Total Bilirubin 0.30 mg/dL (0.2-1.0) 12/13/20 05:47 AST 16 Units/L (15-37) 12/13/20 05:47 ALT 16 Units/L (12-78) 12/13/20 05:47 Alkaline Phosphatase 130 Units/L (46-116) H 12/13/20 05:47 Creatine Kinase 20 Units/L (39-308) L 12/12/20 21:33 CK-MB (CK-2) < 1.0 ng/mL (0-4.0) 12/12/20 21:33 CK/CKMB % Calc 5.0 % (<4) 12/12/20 21:33 Troponin I < 0.02 ng/mL (0-1.5) 12/12/20 21:33 Total Protein 7.5 g/dL (6.4-8.2) 12/13/20 05:47 Albumin 2.8 g/dL (3.4-5.0) L 12/13/20 05:47 Globulin 4.7 g/dL (2.5-4.5) H 12/13/20 05:47 Albumin/Globulin Ratio 0.6 Ratio (1.1-2.1) L 12/13/20 05:47 SARS-CoV-2 (PCR) Negative (NEGATIVE) 12/12/20 23:22 Influenza Type A (PCR) Negative (NEGATIVE) 12/12/20 23:22 Influenza Type B (PCR) Negative (NEGATIVE) 12/12/20 23:22 RSV (PCR) Negative (NEGATIVE) 12/12/20 23:22 Review of Systems Constitutional: Weakness; denies Fever and Chills Eyes: No Symptoms Reported ENT: No Symptoms Reported Respiratory: Wheezing Cardiovascular: No Symptoms Reported Gastrointestinal: No Symptoms Reported Genitourinary: No Symptoms Reported Musculoskeletal: No Symptoms Reported Skin: No Symptoms Reported Neurological: No Symptoms Reported Physical Exam Vital Signs: Temperature 98.3 F Pulse Rate [Left Brachial] 85 Pulse Rate 95 Respiratory Rate 12 Blood Pressure [Left Arm] 136/71 Blood Pressure 126/78 O2 Sat by Pulse Oximetry 92 Oriented: Normal Eyes: Normal Ear: Normal Nose: Normal Throat: Normal Respiratory: Diminished Throughout and Wheezes Throughout Cardiovascular: Normal : Normal Auscultation: Bowel Sounds: Normal Palpation: Normal Tenderness: Normal Skin: Normal Musculoskeletal: Normal Psychiatric: Normal Mood Description: Calm and Appropriate Affect: Normal Speech Pattern: Clear and Appropriate Assessment/Plan (1) Acute renal failure: Qualifiers: Acute renal failure type: unspecified Qualified Code(s): N17.9 - Acute kidney failure, unspecified Status: Acute Plan: IVF Monitor renal function (2) Dehydration: Status: Acute Review H&P Reviewed: Yes Patient was examined?: Yes
[2020-12-13] MEDS: SNACK - Diabetic Appropriate PO SCH (20:00)
[2020-12-13] MEDS: NEURONTIN TAB 600 MG PO SCH (20:25)
[2020-12-13] MEDS: LIPITOR TAB 80 MG PO SCH (20:25)
[2020-12-13] MEDS: PROSCAR PO SCH (20:25)
[2020-12-14] MEDS: NS 1000 ML 1,000 ML IV SCH ×2 (04:10→16:31)
[2020-12-14 05:59] LABS: BASOPHILS % (AUTO) 0.5 % (0.2-1.0); EOSINOPHILS # (AUTO) 0.5 x10^3/uL (0.0-0.2); EOSINOPHILS % (AUTO) 5.7 % (0.9-2.9); HEMATOCRIT 31.7 % (42.0-54.0); HEMOGLOBIN 10.4 g/dL (13.5-18.0); LYMPHOCYTES # (AUTO) 1.2 X10^3/uL (1.3-2.9); LYMPHOCYTES % (AUTO) 14.3 % (21.0-51.0); MEAN CORPUSCULAR HEMOGLOBIN 25.1 pg (27.0-34.0); MEAN CORPUSCULAR HGB CONC 32.9 g/dL (33.0-35.0); MEAN CORPUSCULAR VOLUME 76.2 fL (80.0-100.0); MEAN PLATELET VOLUME 7.2 fL (7.4-11.0); MONOCYTES # (AUTO) 0.9 x10^3/uL (0.3-0.8); MONOCYTES % (AUTO) 10.1 % (0.0-13.0); NEUTROPHILS # (AUTO) 5.9 x10^3/uL (2.2-4.8); NEUTROPHILS % (AUTO) 69.4 % (42.0-75.0); PLATELET COUNT 356 X10^3/uL (150.0-450.0); RED BLOOD COUNT 4.16 X10^6/uL (4.7-6.0); RED CELL DISTRIBUTION WIDTH 17.7 % (11.6-16.5); WHITE BLOOD COUNT 8.5 X10^3/uL (3.6-10.0)
[2020-12-14 06:16] LABS: ALANINE AMINOTRANSFERASE 13 Units/L (12-78); ALBUMIN 2.5 g/dL (3.4-5.0); ALKALINE PHOSPHATASE 114 Units/L (46-116); ASPARTATE AMINO TRANSFERASE 15 Units/L (15-37); BLOOD UREA NITROGEN 15 mg/dL (7-18); CALCIUM 8.9 mg/dL (8.5-10.1); CHLORIDE 108 mmol/L (98-107); COR CA(FOR HYPOALB) 10.1 mg/dL (8.5-10.1); CREATININE 1.01 mg/dL (0.70-1.30); SODIUM 144 mmol/L (136-145); TOTAL PROTEIN 6.8 g/dL (6.4-8.2); eGFR NON BLACK RACES > 60 (>60)
[2020-12-14] MEDS ORDERED: GLUCOPHAGE ONE ×2 (08:42→20:12)
[2020-12-14] MEDS: CLARITIN PO SCH (09:03)
[2020-12-14] MEDS: CYMBALTA PO SCH (09:03)
[2020-12-14] MEDS: VITAMIN D3 25 mcg (1,000 UNITS) PO SCH (09:04)
[2020-12-14] MEDS: GLUCOTROL PO SCH (09:04)
[2020-12-14] MEDS: TAB-A-VITE PO SCH (09:04)
[2020-12-14] MEDS: ASPIRIN EC 81 MG PO SCH (09:05)
[2020-12-14] MEDS: NORVASC TAB 10 MG PO SCH (09:05)
[2020-12-14] MEDS: ARICEPT TAB 10 MG PO SCH ×2 (09:05→20:27)
[2020-12-14] MEDS: LOPRESSOR TAB 25 MG PO SCH ×2 (09:06→20:27)
[2020-12-14] MEDS: GLUCOPHAGE PO SCH ×2 (09:06→20:26)
[2020-12-14] MEDS: PROVENTIL NEB TX 0.083% 2.5MG/ 3ML NEB PRN ×2 (09:18→21:46)
[2020-12-14] MEDS: PULMICORT NEB TX 0.5 MG NEB SCH ×2 (09:19→21:46)
--- NOTE | 2020-12-14 11:39 | PCM.PROG ---
Progress Note Progress Note for Day of Date of Exam: 12/14/20 Subjective Subjective: Pt is a 75 year old male past medical history Hypertension, COPD, DMT2, CVA, and Dementia, admitted for acute renal failure and dehydration. This morning he is resting comfortably in bed. No acute events overnight. Labs/imaging: Wbc 8.5, Hgb 10.4, Plt 356, Na 144, K 4.2, Creatinine 1.48>1.01, Glucose 108. Will continue IVF NS@80ml/h, bronchodilators, and home medications. Pt does have episodes of confusion per family that is his baseline. Sister is concerned that patient is unable to take care of self at home as falls and confusion have increased in frequency recently. Consult case management for possible placement. PT/OT ordered. Otherwise continue with current treatment plan. Monitor and follow up labs in the morning. Past Medical Family Social History Past Med/Fam/Surg Hx: No changes since H&P Allergies: Allergies No Known Drug Allergies Allergy (Verified 12/08/20 14:11) Review of Systems ROS: No change since H&P Vital Signs and I&O's Vital Signs: Temperature 97.8 F Pulse Rate [Left Brachial] 77 Pulse Rate 86 Respiratory Rate 16 Blood Pressure [Left Arm] 183/88 Blood Pressure 126/78 O2 Sat by Pulse Oximetry 93 Intake and Output: Intake & Output 12/11/20 12/12/20 12/13/20 12/14/20 23:59 23:59 23:59 23:59 Intake Total 2333 / 2333 740 / 740 Balance 2333 / 2333 740 / 740 Physical Exam Oriented: Normal Eyes: Normal Ear: Normal Nose: Normal Throat: Normal Respiratory: Diminished and Wheezes Cardiovascular: Normal : Normal Auscultation: Bowel Sounds: Normal Tenderness: Normal Skin: Normal Musculoskeletal: Normal Psychiatric: Normal Mood Description: Calm and Appropriate Affect: Normal Speech Pattern: Clear Laboratory and Diagnostics Result Diagrams: 12/14/20 05:34 12/14/20 05:34 Labs: Laboratory WBC 8.5 X10^3/uL (3.6-10.0) 12/14/20 05:34 RBC 4.16 X10^6/uL (4.7-6.0) L 12/14/20 05:34 Hgb 10.4 g/dL (13.5-18.0) L 12/14/20 05:34 Hct 31.7 % (42.0-54.0) L 12/14/20 05:34 MCV 76.2 fL (80.0-100.0) L 12/14/20 05:34 MCH 25.1 pg (27.0-34.0) L 12/14/20 05:34 MCHC 32.9 g/dL (33.0-35.0) L 12/14/20 05:34 RDW 17.7 % (11.6-16.5) H 12/14/20 05:34 Plt Count 356 X10^3/uL (150.0-450.0) 12/14/20 05:34 MPV 7.2 fL (7.4-11.0) L 12/14/20 05:34 Neut % (Auto) 69.4 % (42.0-75.0) 12/14/20 05:34 Lymph % (Auto) 14.3 % (21.0-51.0) L 12/14/20 05:34 [place] % (Auto) 10.1 % (0.0-13.0) 12/14/20 05:34 Eos % (Auto) 5.7 % (0.9-2.9) H 12/14/20 05:34 Baso % (Auto) 0.5 % (0.2-1.0) 12/14/20 05:34 Neut # (Auto) 5.9 x10^3/uL (2.2-4.8) H 12/14/20 05:34 Lymph # (Auto) 1.2 X10^3/uL (1.3-2.9) L 12/14/20 05:34 [place] # (Auto) 0.9 x10^3/uL (0.3-0.8) H 12/14/20 05:34 Eos # (Auto) 0.5 x10^3/uL (0.0-0.2) H 12/14/20 05:34 Baso # (Auto) 0.0 X10^3/uL (0.0-0.1) 12/14/20 05:34 Absolute Nucleated RBC 0.1 /100WBC 12/14/20 05:34 Sodium 144 mmol/L (136-145) 12/14/20 05:34 Corrected Sodium TNP 12/14/20 05:34 Potassium 4.2 mmol/L (3.5-5.1) 12/14/20 05:34 Chloride 108 mmol/L (98-107) H 12/14/20 05:34 Carbon Dioxide 26.0 mmol/L (21-32) 12/14/20 05:34 BUN 15 mg/dL (7-18) 12/14/20 05:34 Creatinine 1.01 mg/dL (0.70-1.30) 12/14/20 05:34 Est GFR (MDRD) Af Amer > 60 (>60) 12/14/20 05:34 Est GFR (MDRD) Non-Af > 60 (>60) 12/14/20 05:34 Glucose 108 mg/dL (65-99) H 12/14/20 05:34 POC Glucose (mg/dL) 112 mg/dL (65-99) H 12/14/20 05:55 Calcium 8.9 mg/dL (8.5-10.1) 12/14/20 05:34 Corrected Calcium 10.1 mg/dL (8.5-10.1) 12/14/20 05:34 Total Bilirubin 0.20 mg/dL (0.2-1.0) 12/14/20 05:34 AST 15 Units/L (15-37) 12/14/20 05:34 ALT 13 Units/L (12-78) 12/14/20 05:34 Alkaline Phosphatase 114 Units/L (46-116) 12/14/20 05:34 Creatine Kinase 20 Units/L (39-308) L 12/12/20 21:33 CK-MB (CK-2) < 1.0 ng/mL (0-4.0) 12/12/20 21:33 CK/CKMB % Calc 5.0 % (<4) 12/12/20 21:33 Troponin I < 0.02 ng/mL (0-1.5) 12/12/20 21:33 Total Protein 6.8 g/dL (6.4-8.2) 12/14/20 05:34 Albumin 2.5 g/dL (3.4-5.0) L 12/14/20 05:34 Globulin 4.3 g/dL (2.5-4.5) 12/14/20 05:34 Albumin/Globulin Ratio 0.6 Ratio (1.1-2.1) L 12/14/20 05:34 SARS-CoV-2 (PCR) Negative (NEGATIVE) 12/12/20 23:22 Influenza Type A (PCR) Negative (NEGATIVE) 12/12/20 23:22 Influenza Type B (PCR) Negative (NEGATIVE) 12/12/20 23:22 RSV (PCR) Negative (NEGATIVE) 12/12/20 23:22 Plan (1) Acute renal failure: Status: Acute Qualifiers: Acute renal failure type: unspecified Qualified Code(s): N17.9 - Acute kidney failure, unspecified Plan: IVF Monitor renal function (2) Dehydration: Status: Acute
[2020-12-14] MEDS: NEURONTIN TAB 600 MG PO SCH (20:26)
[2020-12-14] MEDS: SNACK - Diabetic Appropriate PO SCH (20:26)
[2020-12-14] MEDS: PROSCAR PO SCH (20:26)
[2020-12-14] MEDS: LIPITOR TAB 80 MG PO SCH (20:26)
[2020-12-15 02:50] LABS: BILIRUBIN,URINE NEGATIVE (NEGATIVE); BLOOD/HEMOGLOBIN,URINE NEGATIVE (NEGATIVE); GLUCOSE, URINE NEGATIVE (NEGATIVE); KETONES,URINE NEGATIVE (NEGATIVE); LEUKOCYTE ESTERASE ,URINE NEGATIVE (NEGATIVE); NITRITES,URINE NEGATIVE (NEGATIVE); PROTEIN,URINE 3+ (NEGATIVE); UROBILINOGEN,URINE NORMAL (NORMAL)
[2020-12-15 02:56] LABS: APPEARANCE,URINE CLEAR (CLEAR); COLOR,URINE PALE YELLOW (YELLOW)
[2020-12-15 02:57] LABS: BACTERIA,URINE NEGATIVE /HPF (NEGATIVE); RBC,URINE NONE SEEN /HPF (0-3); SQUAMOUS EPITHELIAL CELL,UR RARE /HPF (NEGATIVE)
[2020-12-15] MEDS: NS 1000 ML 1,000 ML IV SCH ×2 (05:58→21:02)
[2020-12-15 07:23] LABS: BASOPHILS % (AUTO) 0.6 % (0.2-1.0); EOSINOPHILS # (AUTO) 0.5 x10^3/uL (0.0-0.2); EOSINOPHILS % (AUTO) 6.7 % (0.9-2.9); HEMATOCRIT 30.3 % (42.0-54.0); LYMPHOCYTES % (AUTO) 12.2 % (21.0-51.0); MEAN CORPUSCULAR HEMOGLOBIN 25.1 pg (27.0-34.0); MEAN CORPUSCULAR HGB CONC 33.1 g/dL (33.0-35.0); MEAN CORPUSCULAR VOLUME 75.8 fL (80.0-100.0); MEAN PLATELET VOLUME 7.2 fL (7.4-11.0); MONOCYTES # (AUTO) 0.7 x10^3/uL (0.3-0.8); MONOCYTES % (AUTO) 9.4 % (0.0-13.0); NEUTROPHILS # (AUTO) 5.6 x10^3/uL (2.2-4.8); NEUTROPHILS % (AUTO) 71.1 % (42.0-75.0); PLATELET COUNT 340 X10^3/uL (150.0-450.0); RED CELL DISTRIBUTION WIDTH 17.9 % (11.6-16.5); WHITE BLOOD COUNT 7.9 X10^3/uL (3.6-10.0)
[2020-12-15 07:36] LABS: ALBUMIN 2.4 g/dL (3.4-5.0); BLOOD UREA NITROGEN 13 mg/dL (7-18); CALCIUM 8.6 mg/dL (8.5-10.1); CHLORIDE 106 mmol/L (98-107); COR CA(FOR HYPOALB) 9.9 mg/dL (8.5-10.1); CREATININE 0.87 mg/dL (0.70-1.30); SODIUM 141 mmol/L (136-145); eGFR NON BLACK RACES > 60 (>60)
[2020-12-15] MEDS ORDERED: GLUCOPHAGE ONE ×2 (07:54→20:23)
[2020-12-15 08:09] LABS: ALANINE AMINOTRANSFERASE 12 Units/L (12-78); ALKALINE PHOSPHATASE 114 Units/L (46-116); ASPARTATE AMINO TRANSFERASE 17 Units/L (15-37)
[2020-12-15 08:25] LABS: TOTAL PROTEIN 6.7 g/dL (6.4-8.2)
[2020-12-15] MEDS: NORVASC TAB 10 MG PO SCH (09:32)
[2020-12-15] MEDS: CYMBALTA PO SCH (09:33)
[2020-12-15] MEDS: GLUCOTROL PO SCH (09:34)
[2020-12-15] MEDS: TAB-A-VITE PO SCH (09:35)
[2020-12-15] MEDS: ASPIRIN EC 81 MG PO SCH (09:35)
[2020-12-15] MEDS: VITAMIN D3 25 mcg (1,000 UNITS) PO SCH (09:36)
[2020-12-15] MEDS: GLUCOPHAGE PO SCH ×2 (09:37→20:40)
[2020-12-15] MEDS: CLARITIN PO SCH (09:37)
[2020-12-15] MEDS: ARICEPT TAB 10 MG PO SCH ×2 (09:37→20:39)
[2020-12-15] MEDS: LOPRESSOR TAB 25 MG PO SCH ×2 (09:38→20:39)
[2020-12-15] MEDS: PROVENTIL NEB TX 0.083% 2.5MG/ 3ML NEB PRN ×2 (09:42→21:00)
[2020-12-15] MEDS: PULMICORT NEB TX 0.5 MG NEB SCH ×2 (09:42→21:00)
--- NOTE | 2020-12-15 13:33 | PCM.PROG ---
Progress Note Progress Note for Day of Date of Exam: 12/15/20 Subjective Subjective: Pt is a 75 year old male past medical history Hypertension, COPD, DMT2, CVA, and Dementia, admitted for acute renal failure and dehydration. He is sitting up in bed this morning. No concerns or acute events. Labs/imaging: Wbc 7.9, Hgb 10, Plt 340, Na 141, K 3.9, Creatinine 0.87, Glucose 110. Current treatment plan: IVF NS@80ml/h, bronchodilators, and home medications. Pt with history of dementia and falls. Sister requesting snf placement. Consult case management for possible placement. PT/OT ordered. Otherwise continue with current treatment plan. Monitor and follow up labs in the morning. Past Medical Family Social History Past Med/Fam/Surg Hx: No changes since H&P Allergies: Allergies No Known Drug Allergies Allergy (Verified 12/08/20 14:11) Review of Systems ROS: No change since H&P Vital Signs and I&O's Vital Signs: Temperature 98.0 F Pulse Rate [Left Brachial] 90 Pulse Rate 83 Respiratory Rate 20 Blood Pressure [Left Arm] 149/83 Blood Pressure 126/78 O2 Sat by Pulse Oximetry 96 Intake and Output: Intake & Output 12/12/20 12/13/20 12/14/20 12/15/20 23:59 23:59 23:59 23:59 Intake Total 2333 / 2333 2227 / 2227 0 / 0 Balance 2333 / 2333 2227 / 2227 0 / 0 Physical Exam Oriented: Normal Eyes: Normal Ear: Normal Nose: Normal Throat: Normal Respiratory: Diminished Cardiovascular: Normal : Normal Auscultation: Bowel Sounds: Normal Tenderness: Normal Skin: Normal Musculoskeletal: Normal Psychiatric: Normal Mood Description: Calm and Appropriate Affect: Normal Speech Pattern: Clear and Appropriate Laboratory and Diagnostics Result Diagrams: 12/15/20 06:49 12/15/20 06:49 Labs: Laboratory WBC 7.9 X10^3/uL (3.6-10.0) 12/15/20 06:49 RBC 4.00 X10^6/uL (4.7-6.0) L 12/15/20 06:49 Hgb 10.0 g/dL (13.5-18.0) L 12/15/20 06:49 Hct 30.3 % (42.0-54.0) L 12/15/20 06:49 MCV 75.8 fL (80.0-100.0) L 12/15/20 06:49 MCH 25.1 pg (27.0-34.0) L 12/15/20 06:49 MCHC 33.1 g/dL (33.0-35.0) 12/15/20 06:49 RDW 17.9 % (11.6-16.5) H 12/15/20 06:49 Plt Count 340 X10^3/uL (150.0-450.0) 12/15/20 06:49 MPV 7.2 fL (7.4-11.0) L 12/15/20 06:49 Neut % (Auto) 71.1 % (42.0-75.0) 12/15/20 06:49 Lymph % (Auto) 12.2 % (21.0-51.0) L 12/15/20 06:49 [place] % (Auto) 9.4 % (0.0-13.0) 12/15/20 06:49 Eos % (Auto) 6.7 % (0.9-2.9) H 12/15/20 06:49 Baso % (Auto) 0.6 % (0.2-1.0) 12/15/20 06:49 Neut # (Auto) 5.6 x10^3/uL (2.2-4.8) H 12/15/20 06:49 Lymph # (Auto) 1.0 X10^3/uL (1.3-2.9) L 12/15/20 06:49 [place] # (Auto) 0.7 x10^3/uL (0.3-0.8) 12/15/20 06:49 Eos # (Auto) 0.5 x10^3/uL (0.0-0.2) H 12/15/20 06:49 Baso # (Auto) 0.0 X10^3/uL (0.0-0.1) 12/15/20 06:49 Absolute Nucleated RBC 0.0 /100WBC 12/15/20 06:49 Sodium 141 mmol/L (136-145) 12/15/20 06:49 Corrected Sodium TNP 12/15/20 06:49 Potassium 3.9 mmol/L (3.5-5.1) 12/15/20 06:49 Chloride 106 mmol/L (98-107) 12/15/20 06:49 Carbon Dioxide 28.0 mmol/L (21-32) 12/15/20 06:49 BUN 13 mg/dL (7-18) 12/15/20 06:49 Creatinine 0.87 mg/dL (0.70-1.30) 12/15/20 06:49 Est GFR (MDRD) Af Amer > 60 (>60) 12/15/20 06:49 Est GFR (MDRD) Non-Af > 60 (>60) 12/15/20 06:49 Glucose 110 mg/dL (65-99) H 12/15/20 06:49 POC Glucose (mg/dL) 95 mg/dL (65-99) 12/15/20 11:43 Calcium 8.6 mg/dL (8.5-10.1) 12/15/20 06:49 Corrected Calcium 9.9 mg/dL (8.5-10.1) 12/15/20 06:49 Total Bilirubin 0.20 mg/dL (0.2-1.0) 12/15/20 06:49 AST 17 Units/L (15-37) 12/15/20 06:49 ALT 12 Units/L (12-78) 12/15/20 06:49 Alkaline Phosphatase 114 Units/L (46-116) 12/15/20 06:49 Creatine Kinase 20 Units/L (39-308) L 12/12/20 21:33 CK-MB (CK-2) < 1.0 ng/mL (0-4.0) 12/12/20 21:33 CK/CKMB % Calc 5.0 % (<4) 12/12/20 21:33 Troponin I < 0.02 ng/mL (0-1.5) 12/12/20 21:33 Total Protein 6.7 g/dL (6.4-8.2) 12/15/20 06:49 Albumin 2.4 g/dL (3.4-5.0) L 12/15/20 06:49 Globulin 4.3 g/dL (2.5-4.5) 12/15/20 06:49 Albumin/Globulin Ratio 0.6 Ratio (1.1-2.1) L 12/15/20 06:49 Specimen Type Clean catch urine 12/15/20 02:15 Urine Color Pale yellow (YELLOW) 12/15/20 02:15 Urine Appearance Clear (CLEAR) 12/15/20 02:15 Urine pH 6.0 (5.0 - 8.0) 12/15/20 02:15 Ur Specific [place] 1.015 (1.000-1.030) 12/15/20 02:15 Urine Protein 3+ (NEGATIVE) 12/15/20 02:15 Urine Glucose (UA) Negative (NEGATIVE) 12/15/20 02:15 Urine Ketones Negative (NEGATIVE) 12/15/20 02:15 Urine Occult Blood Negative (NEGATIVE) 12/15/20 02:15 Urine Nitrite Negative (NEGATIVE) 12/15/20 02:15 Urine Bilirubin Negative (NEGATIVE) 12/15/20 02:15 Urine Urobilinogen Normal (NORMAL) 12/15/20 02:15 Ur Leukocyte Esterase Negative (NEGATIVE) 12/15/20 02:15 Urine RBC None seen /HPF (0-3) 12/15/20 02:15 Urine WBC None seen /HPF (0-5) 12/15/20 02:15 Ur Squamous Epith Cells Rare /HPF (NEGATIVE) 12/15/20 02:15 Urine Bacteria Negative /HPF (NEGATIVE) 12/15/20 02:15 Ur Culture Indicated? No/not indicated 12/15/20 02:15 SARS-CoV-2 (PCR) Negative (NEGATIVE) 12/12/20 23:22 Influenza Type A (PCR) Negative (NEGATIVE) 12/12/20 23:22 Influenza Type B (PCR) Negative (NEGATIVE) 12/12/20 23:22 RSV (PCR) Negative (NEGATIVE) 12/12/20 23:22 Plan (1) Acute renal failure: Status: Acute Qualifiers: Acute renal failure type: unspecified Qualified Code(s): N17.9 - Acute kidney failure, unspecified Plan: IVF Monitor renal function (2) Dehydration: Status: Acute
[2020-12-15] MEDS: LIPITOR TAB 80 MG PO SCH (20:39)
[2020-12-15] MEDS: NEURONTIN TAB 600 MG PO SCH (20:39)
[2020-12-15] MEDS: PROSCAR PO SCH (20:39)
[2020-12-15] MEDS: SNACK - Diabetic Appropriate PO SCH (20:40)
[2020-12-16 06:14] LABS: BASOPHILS # (AUTO) 0.1 X10^3/uL (0.0-0.1); BASOPHILS % (AUTO) 0.7 % (0.2-1.0); EOSINOPHILS # (AUTO) 0.5 x10^3/uL (0.0-0.2); EOSINOPHILS % (AUTO) 7.2 % (0.9-2.9); HEMATOCRIT 31.8 % (42.0-54.0); HEMOGLOBIN 10.5 g/dL (13.5-18.0); LYMPHOCYTES # (AUTO) 0.9 X10^3/uL (1.3-2.9); LYMPHOCYTES % (AUTO) 12.3 % (21.0-51.0); MEAN CORPUSCULAR HEMOGLOBIN 25.2 pg (27.0-34.0); MEAN CORPUSCULAR VOLUME 76.3 fL (80.0-100.0); MEAN PLATELET VOLUME 7.7 fL (7.4-11.0); MONOCYTES # (AUTO) 0.7 x10^3/uL (0.3-0.8); MONOCYTES % (AUTO) 9.4 % (0.0-13.0); NEUTROPHILS # (AUTO) 5.3 x10^3/uL (2.2-4.8); NEUTROPHILS % (AUTO) 70.4 % (42.0-75.0); PLATELET COUNT 340 X10^3/uL (150.0-450.0); RED BLOOD COUNT 4.17 X10^6/uL (4.7-6.0); RED CELL DISTRIBUTION WIDTH 18.2 % (11.6-16.5); WHITE BLOOD COUNT 7.6 X10^3/uL (3.6-10.0)
[2020-12-16 06:47] LABS: ALANINE AMINOTRANSFERASE 14 Units/L (12-78); ALBUMIN 2.4 g/dL (3.4-5.0); ALKALINE PHOSPHATASE 110 Units/L (46-116); ASPARTATE AMINO TRANSFERASE 18 Units/L (15-37); BLOOD UREA NITROGEN 10 mg/dL (7-18); CALCIUM 8.9 mg/dL (8.5-10.1); CARBON DIOXIDE 27.8 mmol/L (21-32); CHLORIDE 104 mmol/L (98-107); COR CA(FOR HYPOALB) 10.2 mg/dL (8.5-10.1); COR NA(FOR HYPERGLY) 140 mmol/L (136-145); CREATININE 0.86 mg/dL (0.70-1.30); SODIUM 140 mmol/L (136-145); TOTAL PROTEIN 6.7 g/dL (6.4-8.2); eGFR NON BLACK RACES > 60 (>60)
[2020-12-16] MEDS ORDERED: GLUCOPHAGE ONE ×2 (07:53→20:40)
[2020-12-16] MEDS: VITAMIN D3 25 mcg (1,000 UNITS) PO SCH (09:33)
[2020-12-16] MEDS: ARICEPT TAB 10 MG PO SCH ×2 (09:34→21:00)
[2020-12-16] MEDS: CLARITIN PO SCH (09:34)
[2020-12-16] MEDS: CYMBALTA PO SCH (09:34)
[2020-12-16] MEDS: PULMICORT NEB TX 0.5 MG NEB SCH ×2 (09:35→20:38)
[2020-12-16] MEDS: ASPIRIN EC 81 MG PO SCH (09:41)
[2020-12-16] MEDS: GLUCOTROL PO SCH (09:42)
[2020-12-16] MEDS: GLUCOPHAGE PO SCH ×2 (09:42→21:00)
[2020-12-16] MEDS: TAB-A-VITE PO SCH (09:42)
[2020-12-16] MEDS: LOPRESSOR TAB 25 MG PO SCH ×2 (09:42→21:00)
[2020-12-16] MEDS: NORVASC TAB 10 MG PO SCH (09:42)
[2020-12-16] MEDS: LOVENOX INJ 40 MG SYR SC SCH (10:50)
[2020-12-16] MEDS: NS 1000 ML 1,000 ML IV SCH (10:50)
--- NOTE | 2020-12-16 11:36 | PCM.PROG ---
Progress Note Progress Note for Day of Date of Exam: 12/16/20 Subjective Subjective: Pt is a 75 year old male past medical history Hypertension, COPD, DMT2, CVA, and Dementia, admitted for acute renal failure and dehydration. He is resting in bed comfortably this morning. Per nursing, pt has had multiple episodes of diarrhea that has a "foul odor". Will get stool studies and culture to evaluate. Pt also noted to have some difficulty at times swallowing food, did better with thickened diet. Will get speech evaluation. Labs/imaging: Wbc 7.6, Hgb 10.5, Plt 340, Na 140, K 3.9, Creatinine 0.86, Glucose 117. Current treatment plan: IVF NS@80ml/h, bronchodilators, PT/OT, and home medications. Pt with history of dementia and falls. Case management for possible rehabilitation /SNF placement. Otherwise continue with current treatment plan. Monitor and follow up labs in the morning. Past Medical Family Social History Past Med/Fam/Surg Hx: No changes since H&P Allergies: Allergies No Known Drug Allergies Allergy (Verified 12/08/20 14:11) Review of Systems ROS: No change since H&P Vital Signs and I&O's Vital Signs: Temperature 98.7 F Pulse Rate [Left Brachial] 75 Pulse Rate 80 Respiratory Rate 22 Blood Pressure [Left Arm] 185/88 Blood Pressure 126/78 O2 Sat by Pulse Oximetry 94 Intake and Output: Intake & Output 12/13/20 12/14/20 12/15/20 12/16/20 23:59 23:59 23:59 23:59 Intake Total 2332 / 2332226 / 2226 1285 / 1285 490 / 490 Balance 2332 / 2332 2226 / 2226 1285 / 1285 490 / 490 Physical Exam Oriented: Normal Eyes: Normal Ear: Normal Nose: Normal Throat: Normal Respiratory: Diminished Cardiovascular: Normal : Normal Auscultation: Bowel Sounds: Normal Tenderness: Normal Skin: Normal Musculoskeletal: Normal Psychiatric: Normal Mood Description: Calm and Appropriate Affect: Normal Speech Pattern: Clear and Appropriate Laboratory and Diagnostics Result Diagrams: 12/16/20 05:25 12/16/20 05:25 Labs: Laboratory WBC 7.6 X10^3/uL (3.6-10.0) 12/16/20 05:25 RBC 4.17 X10^6/uL (4.7-6.0) L 12/16/20 05:25 Hgb 10.5 g/dL (13.5-18.0) L 12/16/20 05:25 Hct 31.8 % (42.0-54.0) L 12/16/20 05:25 MCV 76.3 fL (80.0-100.0) L 12/16/20 05:25 MCH 25.2 pg (27.0-34.0) L 12/16/20 05:25 MCHC 33.0 g/dL (33.0-35.0) 12/16/20 05:25 RDW 18.2 % (11.6-16.5) H 12/16/20 05:25 Plt Count 340 X10^3/uL (150.0-450.0) 12/16/20 05:25 MPV 7.7 fL (7.4-11.0) 12/16/20 05:25 Neut % (Auto) 70.4 % (42.0-75.0) 12/16/20 05:25 Lymph % (Auto) 12.3 % (21.0-51.0) L 12/16/20 05:25 [place] % (Auto) 9.4 % (0.0-13.0) 12/16/20 05:25 Eos % (Auto) 7.2 % (0.9-2.9) H 12/16/20 05:25 Baso % (Auto) 0.7 % (0.2-1.0) 12/16/20 05:25 Neut # (Auto) 5.3 x10^3/uL (2.2-4.8) H 12/16/20 05:25 Lymph # (Auto) 0.9 X10^3/uL (1.3-2.9) L 12/16/20 05:25 [place] # (Auto) 0.7 x10^3/uL (0.3-0.8) 12/16/20 05:25 Eos # (Auto) 0.5 x10^3/uL (0.0-0.2) H 12/16/20 05:25 Baso # (Auto) 0.1 X10^3/uL (0.0-0.1) 12/16/20 05:25 Absolute Nucleated RBC 0.1 /100WBC 12/16/20 05:25 Sodium 140 mmol/L (136-145) 12/16/20 05:25 Corrected Sodium 140 mmol/L (136-145) 12/16/20 05:25 Potassium 3.9 mmol/L (3.5-5.1) 12/16/20 05:25 Chloride 104 mmol/L (98-107) 12/16/20 05:25 Carbon Dioxide 27.8 mmol/L (21-32) 12/16/20 05:25 BUN 10 mg/dL (7-18) 12/16/20 05:25 Creatinine 0.86 mg/dL (0.70-1.30) 12/16/20 05:25 Est GFR (MDRD) Af Amer > 60 (>60) 12/16/20 05:25 Est GFR (MDRD) Non-Af > 60 (>60) 12/16/20 05:25 Glucose 117 mg/dL (65-99) H 12/16/20 05:25 POC Glucose (mg/dL) 118 mg/dL (65-99) H 12/16/20 05:44 Calcium 8.9 mg/dL (8.5-10.1) 12/16/20 05:25 Corrected Calcium 10.2 mg/dL (8.5-10.1) H 12/16/20 05:25 Total Bilirubin 0.20 mg/dL (0.2-1.0) 12/16/20 05:25 AST 18 Units/L (15-37) 12/16/20 05:25 ALT 14 Units/L (12-78) 12/16/20 05:25 Alkaline Phosphatase 110 Units/L (46-116) 12/16/20 05:25 Creatine Kinase 20 Units/L (39-308) L 12/12/20 21:33 CK-MB (CK-2) < 1.0 ng/mL (0-4.0) 12/12/20 21:33 CK/CKMB % Calc 5.0 % (<4) 12/12/20 21:33 Troponin I < 0.02 ng/mL (0-1.5) 12/12/20 21:33 Total Protein 6.7 g/dL (6.4-8.2) 12/16/20 05:25 Albumin 2.4 g/dL (3.4-5.0) L 12/16/20 05:25 Globulin 4.3 g/dL (2.5-4.5) 12/16/20 05:25 Albumin/Globulin Ratio 0.6 Ratio (1.1-2.1) L 12/16/20 05:25 Specimen Type Clean catch urine 12/15/20 02:15 Urine Color Pale yellow (YELLOW) 12/15/20 02:15 Urine Appearance Clear (CLEAR) 12/15/20 02:15 Urine pH 6.0 (5.0 - 8.0) 12/15/20 02:15 Ur Specific [place] 1.015 (1.000-1.030) 12/15/20 02:15 Urine Protein 3+ (NEGATIVE) 12/15/20 02:15 Urine Glucose (UA) Negative (NEGATIVE) 12/15/20 02:15 Urine Ketones Negative (NEGATIVE) 12/15/20 02:15 Urine Occult Blood Negative (NEGATIVE) 12/15/20 02:15 Urine Nitrite Negative (NEGATIVE) 12/15/20 02:15 Urine Bilirubin Negative (NEGATIVE) 12/15/20 02:15 Urine Urobilinogen Normal (NORMAL) 12/15/20 02:15 Ur Leukocyte Esterase Negative (NEGATIVE) 12/15/20 02:15 Urine RBC None seen /HPF (0-3) 12/15/20 02:15 Urine WBC None seen /HPF (0-5) 12/15/20 02:15 Ur Squamous Epith Cells Rare /HPF (NEGATIVE) 12/15/20 02:15 Urine Bacteria Negative /HPF (NEGATIVE) 12/15/20 02:15 Ur Culture Indicated? No/not indicated 12/15/20 02:15 SARS-CoV-2 (PCR) Negative (NEGATIVE) 12/12/20 23:22 Influenza Type A (PCR) Negative (NEGATIVE) 12/12/20 23:22 Influenza Type B (PCR) Negative (NEGATIVE) 12/12/20 23:22 RSV (PCR) Negative (NEGATIVE) 12/12/20 23:22 Plan (1) Acute renal failure: Status: Acute Qualifiers: Acute renal failure type: unspecified Qualified Code(s): N17.9 - Acute kidney failure, unspecified Plan: IVF Monitor renal function (2) Dehydration: Status: Acute (3) Diarrhea: Status: Acute
[2020-12-16] MEDS ORDERED: ZITHROMAX INJ 500 MG VIAL 500 MG in NS 250 ML IV 250 ML IV NR (15:23)
[2020-12-16 15:26] LABS: CRYPTOSPORIDIUM PARVUM ANTIGEN NEGATIVE (NEGATIVE); GIARDIA LAMBLIA ANTIGEN NEGATIVE (NEGATIVE)
[2020-12-16] MEDS: NEURONTIN TAB 600 MG PO SCH (21:00)
[2020-12-16] MEDS: LIPITOR TAB 80 MG PO SCH (21:00)
[2020-12-16] MEDS: PROSCAR PO SCH (21:00)
[2020-12-16] MEDS: SNACK - Diabetic Appropriate PO SCH (21:03)
[2020-12-17] MEDS: NS 1000 ML 1,000 ML IV SCH (02:30)
[2020-12-17 06:22] LABS: BASOPHILS % (AUTO) 0.6 % (0.2-1.0); EOSINOPHILS # (AUTO) 0.5 x10^3/uL (0.0-0.2); EOSINOPHILS % (AUTO) 6.3 % (0.9-2.9); HEMATOCRIT 31.6 % (42.0-54.0); HEMOGLOBIN 10.3 g/dL (13.5-18.0); LYMPHOCYTES # (AUTO) 0.9 X10^3/uL (1.3-2.9); LYMPHOCYTES % (AUTO) 12.1 % (21.0-51.0); MEAN CORPUSCULAR HEMOGLOBIN 24.8 pg (27.0-34.0); MEAN CORPUSCULAR HGB CONC 32.7 g/dL (33.0-35.0); MEAN CORPUSCULAR VOLUME 75.7 fL (80.0-100.0); MONOCYTES # (AUTO) 0.7 x10^3/uL (0.3-0.8); MONOCYTES % (AUTO) 9.1 % (0.0-13.0); NEUTROPHILS # (AUTO) 5.3 x10^3/uL (2.2-4.8); NEUTROPHILS % (AUTO) 71.9 % (42.0-75.0); PLATELET COUNT 331 X10^3/uL (150.0-450.0); RED BLOOD COUNT 4.18 X10^6/uL (4.7-6.0); RED CELL DISTRIBUTION WIDTH 17.7 % (11.6-16.5); WHITE BLOOD COUNT 7.4 X10^3/uL (3.6-10.0)
[2020-12-17 06:37] LABS: ALANINE AMINOTRANSFERASE 16 Units/L (12-78); ALBUMIN 2.5 g/dL (3.4-5.0); ALKALINE PHOSPHATASE 107 Units/L (46-116); ASPARTATE AMINO TRANSFERASE 16 Units/L (15-37); BLOOD UREA NITROGEN 11 mg/dL (7-18); CARBON DIOXIDE 29.9 mmol/L (21-32); CHLORIDE 105 mmol/L (98-107); COR CA(FOR HYPOALB) 10.2 mg/dL (8.5-10.1); CREATININE 0.89 mg/dL (0.70-1.30); SODIUM 142 mmol/L (136-145); TOTAL PROTEIN 6.8 g/dL (6.4-8.2); eGFR NON BLACK RACES > 60 (>60)
[2020-12-17] MEDS ORDERED: GLUCOPHAGE ONE (08:15)
[2020-12-17] MEDS: LOVENOX INJ 40 MG SYR SC SCH (08:53)
[2020-12-17] MEDS: GLUCOPHAGE PO SCH (08:54)
[2020-12-17] MEDS: VITAMIN D3 25 mcg (1,000 UNITS) PO SCH (08:54)
[2020-12-17] MEDS: GLUCOTROL PO SCH (08:55)
[2020-12-17] MEDS: ARICEPT TAB 10 MG PO SCH (08:55)
[2020-12-17] MEDS: CYMBALTA PO SCH (08:55)
[2020-12-17] MEDS: TAB-A-VITE PO SCH (08:55)
[2020-12-17] MEDS: CLARITIN PO SCH (08:55)
[2020-12-17] MEDS: NORVASC TAB 10 MG PO SCH (08:55)
[2020-12-17] MEDS: ASPIRIN EC 81 MG PO SCH (08:55)
[2020-12-17] MEDS: LOPRESSOR TAB 25 MG PO SCH (08:56)
[2020-12-17] MEDS ORDERED: ZITHROMAX INJ 500 MG VIAL 500 MG in NS 250 ML IV 250 ML IV SCH (09:00)
[2020-12-17] MEDS ORDERED: VSL#3 PO SCH (09:00)
[2020-12-17] MEDS: PULMICORT NEB TX 0.5 MG NEB SCH (09:40)
[2020-12-17] MEDS: PROVENTIL NEB TX 0.083% 2.5MG/ 3ML NEB PRN (09:40)
--- NOTE | 2020-12-17 10:16 | W.DIS.FURT ---
Summary of Discharge Discharge Summary of Date Date of Exam: 12/17/20 Admission Date Date of Admission: 12/12/20 Admission Diagnosis Patient Problems (Updated 12/16/20 @ 11:33 by Rufino Thayer) Acute renal failure (Acute) N17.9 Altered mental status, unspecified (Acute) R41.82 Hospital Course: Pt is a 75 year old male past medical history Hypertension, COPD, DMT2, CVA, and Dementia, admitted for acute renal failure, dehydration, campylobacter diarrhea. His hospital/treatment course included:IVF NS@80ml/h, bronchodilators, PT/OT, Azithromycin, and home medications. Pt responded well to treatments. Labs/imaging: Wbc 7.4, Hgb 10.3, Plt 331, Na 142, K 4.1, Creatinine 0.89, Glucose 108. Labs back to baseline. Pt with history of dementia, falls, generalized weakness. He will discharged to SNF for rehab. Rx azithromycin x 3 days. Pt dicharged in stable condition. Vital Signs: Vital Signs (72 hours) 12/14/20 12:00 12/14/20 16:00 12/14/20 20:00 Temperature 97.9 F 97.9 F 97.7 F Pulse Rate Pulse Rate [Left Brachial] 91 H 81 81 Respiratory Rate 19 17 18 Blood Pressure [Left Arm] 179/83 162/81 183/94 Blood Pressure [Right Arm] O2 Sat by Pulse Oximetry 93 L 97 97 12/14/20 21:46 12/15/20 00:00 12/15/20 04:00 Temperature 97.7 F 97.4 F L Pulse Rate 77 Pulse Rate [Left Brachial] 85 68 Respiratory Rate 18 18 Blood Pressure [Left Arm] 138/79 168/79 Blood Pressure [Right Arm] O2 Sat by Pulse Oximetry 95 93 L 99 12/15/20 08:00 12/15/20 09:42 12/15/20 12:00 Temperature 98.0 F 98.0 F Pulse Rate 83 Pulse Rate [Left Brachial] 76 90 Respiratory Rate 20 20 Blood Pressure [Left Arm] 189/91 149/83 Blood Pressure [Right Arm] O2 Sat by Pulse Oximetry 94 L 94 L 96 12/15/20 16:00 12/15/20 20:00 12/15/20 21:00 Temperature 98.2 F 98.3 F Pulse Rate 80 Pulse Rate [Left Brachial] 74 80 Respiratory Rate 20 18 Blood Pressure [Left Arm] 159/76 179/71 Blood Pressure [Right Arm] O2 Sat by Pulse Oximetry 92 L 89 L 97 12/16/20 00:00 12/16/20 04:00 12/16/20 08:00 Temperature 98.6 F 98.7 F 97.8 F Pulse Rate Pulse Rate [Left Brachial] 87 75 80 Respiratory Rate 20 22 18 Blood Pressure [Left Arm] 149/85 185/88 144/68 Blood Pressure [Right Arm] O2 Sat by Pulse Oximetry 96 94 L 97 12/16/20 09:35 12/16/20 12:00 12/16/20 16:00 Temperature 98.5 F 98.7 F Pulse Rate 85 Pulse Rate [Left Brachial] 88 75 Respiratory Rate 18 18 Blood Pressure [Left Arm] 158/75 140/67 Blood Pressure [Right Arm] O2 Sat by Pulse Oximetry 97 94 L 94 L 12/16/20 20:00 12/16/20 20:38 12/17/20 00:00 Temperature 98.2 F 98.0 F Pulse Rate 80 Pulse Rate [Left Brachial] 89 86 Respiratory Rate 20 20 Blood Pressure [Left Arm] Blood Pressure [Right Arm] 130/72 139/78 O2 Sat by Pulse Oximetry 93 L 93 L 95 12/17/20 04:00 12/17/20 08:00 Temperature 97.5 F L 97.8 F Pulse Rate Pulse Rate [Left Brachial] 70 76 Respiratory Rate 20 20 Blood Pressure [Left Arm] Blood Pressure [Right Arm] 176/82 167/83 O2 Sat by Pulse Oximetry 99 96 Labs: Laboratory Last Values WBC 7.4 X10^3/uL (3.6-10.0) 12/17/20 06:05 RBC 4.18 X10^6/uL (4.7-6.0) L 12/17/20 06:05 Hgb 10.3 g/dL (13.5-18.0) L 12/17/20 06:05 Hct 31.6 % (42.0-54.0) L 12/17/20 06:05 MCV 75.7 fL (80.0-100.0) L 12/17/20 06:05 MCH 24.8 pg (27.0-34.0) L 12/17/20 06:05 MCHC 32.7 g/dL (33.0-35.0) L 12/17/20 06:05 RDW 17.7 % (11.6-16.5) H 12/17/20 06:05 Plt Count 331 X10^3/uL (150.0-450.0) 12/17/20 06:05 MPV 7.0 fL (7.4-11.0) L 12/17/20 06:05 Neut % (Auto) 71.9 % (42.0-75.0) 12/17/20 06:05 Lymph % (Auto) 12.1 % (21.0-51.0) L 12/17/20 06:05 [place] % (Auto) 9.1 % (0.0-13.0) 12/17/20 06:05 Eos % (Auto) 6.3 % (0.9-2.9) H 12/17/20 06:05 Baso % (Auto) 0.6 % (0.2-1.0) 12/17/20 06:05 Neut # (Auto) 5.3 x10^3/uL (2.2-4.8) H 12/17/20 06:05 Lymph # (Auto) 0.9 X10^3/uL (1.3-2.9) L 12/17/20 06:05 [place] # (Auto) 0.7 x10^3/uL (0.3-0.8) 12/17/20 06:05 Eos # (Auto) 0.5 x10^3/uL (0.0-0.2) H 12/17/20 06:05 Baso # (Auto) 0.0 X10^3/uL (0.0-0.1) 12/17/20 06:05 Absolute Nucleated RBC 0.1 /100WBC 12/17/20 06:05 Sodium 142 mmol/L (136-145) 12/17/20 06:05 Corrected Sodium TNP 12/17/20 06:05 Potassium 4.1 mmol/L (3.5-5.1) 12/17/20 06:05 Chloride 105 mmol/L (98-107) 12/17/20 06:05 Carbon Dioxide 29.9 mmol/L (21-32) 12/17/20 06:05 BUN 11 mg/dL (7-18) 12/17/20 06:05 Creatinine 0.89 mg/dL (0.70-1.30) 12/17/20 06:05 Est GFR (MDRD) Af Amer > 60 (>60) 12/17/20 06:05 Est GFR (MDRD) Non-Af > 60 (>60) 12/17/20 06:05 Glucose 108 mg/dL (65-99) H 12/17/20 06:05 POC Glucose (mg/dL) 106 mg/dL (65-99) H 12/17/20 05:36 Calcium 9.0 mg/dL (8.5-10.1) 12/17/20 06:05 Corrected Calcium 10.2 mg/dL (8.5-10.1) H 12/17/20 06:05 Total Bilirubin 0.20 mg/dL (0.2-1.0) 12/17/20 06:05 AST 16 Units/L (15-37) 12/17/20 06:05 ALT 16 Units/L (12-78) 12/17/20 06:05 Alkaline Phosphatase 107 Units/L (46-116) 12/17/20 06:05 Creatine Kinase 20 Units/L (39-308) L 12/12/20 21:33 CK-MB (CK-2) < 1.0 ng/mL (0-4.0) 12/12/20 21:33 CK/CKMB % Calc 5.0 % (<4) 12/12/20 21:33 Troponin I < 0.02 ng/mL (0-1.5) 12/12/20 21:33 Total Protein 6.8 g/dL (6.4-8.2) 12/17/20 06:05 Albumin 2.5 g/dL (3.4-5.0) L 12/17/20 06:05 Globulin 4.3 g/dL (2.5-4.5) 12/17/20 06:05 Albumin/Globulin Ratio 0.6 Ratio (1.1-2.1) L 12/17/20 06:05 Specimen Type Clean catch urine 12/15/20 02:15 Urine Color Pale yellow (YELLOW) 12/15/20 02:15 Urine Appearance Clear (CLEAR) 12/15/20 02:15 Urine pH 6.0 (5.0 - 8.0) 12/15/20 02:15 Ur Specific [place] 1.015 (1.000-1.030) 12/15/20 02:15 Urine Protein 3+ (NEGATIVE) 12/15/20 02:15 Urine Glucose (UA) Negative (NEGATIVE) 12/15/20 02:15 Urine Ketones Negative (NEGATIVE) 12/15/20 02:15 Urine Occult Blood Negative (NEGATIVE) 12/15/20 02:15 Urine Nitrite Negative (NEGATIVE) 12/15/20 02:15 Urine Bilirubin Negative (NEGATIVE) 12/15/20 02:15 Urine Urobilinogen Normal (NORMAL) 12/15/20 02:15 Ur Leukocyte Esterase Negative (NEGATIVE) 12/15/20 02:15 Urine RBC None seen /HPF (0-3) 12/15/20 02:15 Urine WBC None seen /HPF (0-5) 12/15/20 02:15 Ur Squamous Epith Cells Rare /HPF (NEGATIVE) 12/15/20 02:15 Urine Bacteria Negative /HPF (NEGATIVE) 12/15/20 02:15 Ur Culture Indicated? No/not indicated 12/15/20 02:15 Stool Description 1g loose green w/cnk 12/16/20 14:10 Stool Description Fob tube 12/16/20 14:10 Stl Occult Blood (IFOB) Positive (NEGATIVE) A 12/16/20 14:10 Stool for White Cells Positive (NEGATIVE) A 12/16/20 14:10 Stl C. diff Tox B Gene Negative (NEGATIVE) 12/16/20 14:10 Stl C. diff [id number] Presumptive negative (NEGATIVE) 12/16/20 14:10 SARS-CoV-2 (PCR) Negative (NEGATIVE) 12/12/20 23:22 Cryptosporid parvum Ag Negative (NEGATIVE) 12/16/20 14:10 Giardia lamblia Ag Negative (NEGATIVE) 12/16/20 14:10 Influenza Type A (PCR) Negative (NEGATIVE) 12/12/20 23:22 Influenza Type B (PCR) Negative (NEGATIVE) 12/12/20 23:22 RSV (PCR) Negative (NEGATIVE) 12/12/20 23:22 Reason For Visit: FOP ACUTE RENAL FAILURE, DEHYDRATION Discharge Date Discharge Date: 12/17/20 Discharge Diagnosis All Active Problems (Updated 12/16/20 @ 11:33 by Rufino Thayer) Diarrhea (Acute) Acute renal failure (Acute) Altered mental status, unspecified (Acute) Dehydration (Acute) Cystitis (Acute) Plan of Treatment: Continue with present treatment and follow up plan. Pt is to keep follow up appointment as instructed and take medications as ordered. Discharge Medications Discharge Medications: No Known Drug Allergies Allergy (Verified 12/08/20 14:11) Discharge Disposition Discharge Disposition: SNF Discharge Condition: Stable Discharge Plan Discharge Plan Hospital Course: Pt is a 75 year old male past medical history Hypertension, COPD, DMT2, CVA, and Dementia, admitted for acute renal failure, dehydration, campylobacter diarrhea. His hospital/treatment course included:IVF NS@80ml/h, bronchodilators, PT/OT, Azithromycin, and home medications. Pt responded well to treatments. Labs/imaging: Wbc 7.4, Hgb 10.3, Plt 331, Na 142, K 4.1, Creatinine 0.89, Glucose 108. Labs back to baseline. Pt with history of dementia, falls, generalized weakness. He will discharged to SNF for rehab. Rx azithromycin x 3 days. Pt dicharged in stable condition. Patient Disposition: SNF Condition: Stable Health Concerns: Post Hospitalization: new medications and changes needed to prevent readmission or further decline. Pt educated and given instructions on all concerns. Plan of Treatment: Continue with present treatment and follow up plan. Pt is to keep follow up appointment as instructed and take medications as ordered. Prescriptions: New atorvastatin 80 mg Tablet 80 mg PO HS 30 Days Qty: 30 RF: 0 aspirin 81 mg Tablet,Delayed Release (Dr/Ec) 81 mg PO DAILY Qty: 30 RF: 0 amlodipine 10 mg Tablet 10 mg PO DAILY 30 Days RF: 0 VSL#3 112.5 billion cell Capsule 1 cap PO DAILY 30 Days Qty: 30 RF: 0 Continued multivitamin Tablet 1 tab PO DAILY RF: 0 methocarbamol 500 mg Tablet 500 mg PO HS RF: 0 gabapentin 600 mg Tablet 600 mg PO HS RF: 0 donepezil 10 mg Tablet 10 mg PO BID RF: 0 metformin 1,000 mg Tablet 1,000 mg PO BID RF: 0 finasteride 5 mg Tablet 5 mg PO HS RF: 0 metoprolol tartrate 25 mg Tablet 25 mg PO BID RF: 0 duloxetine 30 mg Capsule,Delayed Release(Dr/Ec) 30 mg PO DAILY RF: 0 ergocalciferol (vitamin D2) 1,250 mcg (50,000 unit) Capsule 1,250 unit PO .WEEKLY RF: 0 loratadine 10 mg Tablet 10 mg PO DAILY RF: 0 glipizide 5 mg Tablet 2.5 mg PO DAILY RF: 0 Discontinued cephalexin 500 mg capsule 500 mg PO BID 5 Days Qty: 10 RF: 0 Orders to Discharge Patient Discharge Orders: Discharge (Routine); Ordered 12/17/20 Ordered By: Rufino Thayer Follow ups/Referrals Follow ups/Referrals: SONIA RODRÍGUEZ [Primary Care Provider] - 3 days Instructions Stand Alone Forms: Excuse From Work or School, Precautions for COVID19, Patient Portal, Social Distancing
[2020-12-17 12:19] VITALS: BP 174/87
== END 2020-12-17 12:00 | DRG 683 ==
LOC: ER 21:05 → MED/SURG 21:05
PROVIDERS: ADMIT Family Medicine; ATTEND Family Medicine
DX: N17.8 Other acute kidney failure; Z20.822 Contact with and (suspected) exposure to COVID-19; I10 Essential (primary) hypertension; R26.89 Other abnormalities of gait and mobility; A04.5 Campylobacter enteritis; R13.11 Dysphagia, oral phase; R41.82 Altered mental status, unspecified; R29.6 Repeated falls; J44.9 Chronic obstructive pulmonary disease, unspecified; E11.65 Type 2 diabetes mellitus with hyperglycemia; R55 Syncope and collapse; E78.2 Mixed hyperlipidemia; E86.0 Dehydration